=== PATIENT | male | born 1945 | race Caucasian/White ===

== ENCOUNTER 2017-11-03 12:55 | Inpatient (IN) | payer OTHER ==
--- NOTE | 2017-11-03 13:18 | PDOC ---
History of Present Illness - General Chief Complaint: Chest Pain Stated Complaint: CHEST PAIN Time Seen by Provider: 11/03/17 13:16 - History of Present Illness Initial Comments: 11/03/17 13:38 72 year old man with past medical history of bladder cancer, GERD and HLD who presents with pressure-like chest pain that started 3 days ago when waking up from sleep at 2330. The pain did not wake him up from sleep. After the onset of the pain, the patient was unable to fall back asleep and had to sit in a chair for approx 1 hour. Since onset the pain has been constant but waxes and wanes. He denies shortness of breath and nausea but notes that after the chest pain increases he has some diaphoresis. The pain is noted to worsen with leaning forward but is not relieved with anything. The patient took Tylenols without relief of symptoms. He denies recent illness, cold/flu symptoms, fever or abdominal pain. The patient also complains of some R eye sinus pressure. PMHX: as in HPI PSHX: see below Meds: lipitor Allergies: NKDA Tob: quit in 1985 Etoh: quit 2004 Rec drugs: none Past History - Past Medical History Allergies/Adverse Reactions: Allergies Allergy/AdvReac Type Severity Reaction Status Date / Time No Known Drug Allergies Allergy Verified 11/03/17 13:05 Home Medications: Ambulatory Orders Aspirin Coated [Ecotrin -] 81 mg PO DAILY #0 tablet.ec 09/29/12 Atorvastatin Ca [Lipitor] 20 mg PO HS #0 tablet 09/29/12 Docosahexanoic Acid/Epa [Fish Oil Softgel] 1 each PO DAILY 06/13/13 Multivitamin with Minerals [One Daily] 1 each PO DAILY 06/13/13 Ascorbic Acid [Vitamin C] 1,000 mg PO Q48H 11/03/17 Anemia: No Asthma: No Cancer: Yes (BLADDER CA 2004 & PROSTATE ) Cardiac Disorders: No CVA: No COPD: No CHF: No Dementia: No Diabetes: No GI Disorders: Yes (GERD, GASTRITIS, COLON POLYPS, DIVERTICULOSIS) Disorders: No HTN: No Hypercholesterolemia: Yes Liver Disease: Yes (FATTY LIVER, PREVIOUS ETOH HEPATITIS) Seizures: No Thyroid Disease: No - Surgical History Abdominal Surgery: (LIH, RIH) Appendectomy: No Cardiac Surgery: No Cholecystectomy: No Lung Surgery: No Neurologic Surgery: No Orthopedic Surgery: Yes (LT SHOULDER SX) - Suicide/Smoking/Psychosocial Hx Smoking Status: Yes Smoking History: Never smoked Have you smoked in the past 12 months: No Number of Cigarettes Smoked Daily: 0 If you are a former smoker, when did you quit?: 27YRS AGO Hx Alcohol Use: Yes (LAST USED 2004) Drug/Substance Use Hx: No Substance Use Type: None Hx Substance Use Treatment: No Review of Systems - Review of Systems Able to Perform ROS?: Yes Is the patient limited Taiwanese proficient: No Constitutional: Yes: Diaphoresis. No: Chills, Fever HEENTM: No: Nose Congestion, Throat Pain Respiratory: No: Cough, Orthopnea, Shortness of Breath, Productive cough Cardiac (ROS): Yes: See HPI, Chest Tightness. No: Chest Pain, Lightheadedness, Palpitations ABD/GI: No: Constipated, Diarrhea, Nausea, Vomiting : No: Burning, Dysuria, Hematuria Musculoskeletal: No: Back Pain Integumentary: Yes: Sweating Neurological: No: Headache, Numbness, Paresthesia, Tingling, Tremors *Physical Exam - Vital Signs Last Vital Signs Temp Pulse Resp BP Pulse Ox 98.6 F 72 18 104/69 97 11/03/17 13:03 11/03/17 13:03 11/03/17 13:03 11/03/17 13:03 11/03/17 13:03 - Physical Exam Comments: 11/03/17 13:47 GENERAL: Awake, alert, and fully oriented, in no acute distress HEAD: No signs of trauma, normocephalic, atraumatic EYES: EOMI, sclera anicteric, conjunctiva clear ENT:oropharynx clear without exudates. Moist mucosa NECK: Normal ROM, supple, no lymphadenopathy, JVD, or masses LUNGS: No distress, speaks full sentences, clear to auscultation bilaterally HEART: tachycardia, irregular rhythm, loud S1 and S2, no murmurs, rubs or gallops, peripheral pulses normal and equal bilaterally. ABDOMEN: Soft, nontender, normoactive bowel sounds. No guarding, no rebound. No masses EXTREMITIES : Normal inspection, Normal range of motion, no edema. No clubbing or cyanosis. NEUROLOGICAL: Normal speech, normal gait, no focal sensorimotor deficits SKIN: Warm, Dry, normal turgor, no rashes or lesions noted ED Treatment Course - LABORATORY CBC & Chemistry Diagram: 11/03/17 13:50 11/03/17 19:20 Medical Decision Making - Medical Decision Making 11/03/17 13:48 72 year old man with past medical history of bladder cancer, GERD and HLD who presents with pressure-like chest pain that started 3 days ago when waking up from sleep at 2330. The pain did not wake him up from sleep. After the onset of the pain, the patient was unable to fall back asleep and had to sit in a chair for approx 1 hour. Since onset the pain has been constant but waxes and wanes. He denies shortness of breath and nausea but notes that after the chest pain increases he has some diaphoresis. The pain is noted to worsen with leaning forward but is not relieved with anything. DDX including but not limited to: arrythmia vs ACS vs W/U: - cbc, cmp, cardiac profile, PT/INR, PTT TX: - 1L NS - diltiazem 10mg IV Scores: CHADS-vasc: 1 ED Course: EKG shows new Afib with RVR. Prior EKGs sinus Patient, assessed. stable. no acute distress. 11/03/17 14:00 Diltiazem 10 admin IV and 30 PO with investigative writer and attending at bedside. Patient showed good response HR down to 88 11/03/17 14:07 Malendowiz consulted. recommends lovenox. will come see pt 11/03/17 16:03 Pt admitted to medicine. *DC/Admit/Observation/Transfer Diagnosis at time of Disposition: New onset a-fib, Atrial fibrillation with RVR - Discharge Dispostion Condition at time of disposition: Good Decision to Admit order: Yes - Referrals - Patient Instructions - Post Discharge Activity
[2017-11-03] MEDS ORDERED: SODIUM CHLORIDE 1,000 ML IV STA (13:32)
--- NOTE | 2017-11-03 13:32 | PDOC ---
Attending Attestation - Resident Resident Name: Edith Rebollar - ED Attending Attestation I have performed the following: I have examined & evaluated the patient, The case was reviewed & discussed with the resident, I agree w/resident's findings & plan, Exceptions are as noted - HPI HPI: 11/03/17 15:44 Mr Jo is a 72-year-old male with a history of hypertension who presents emergency department with a complaint of dyspnea on exertion and palpitations. Patient states his symptoms began approximately Wednesday early in the morning. No fevers no chills. No lower chin edema. No recent travel. No prior episodes like this. He noticed today while walking his grandson home he had dyspnea on exertion. Upon arrival to triage he is noted to have a heart rate in the 150s. Prior cardiac history - Physicial Exam PE: 11/03/17 15:45 GENERAL: The patient is in no acute distress. NECK: No JVD LUNGS: Breath sounds equal, clear to auscultation bilaterally. No wheezes, and no crackles. HEART: Irregularly, irregular, no murmurs ABDOMEN: Soft, nontender, normoactive bowel sounds. No guarding, no rebound. No masses palpable. EXTREMITIES: Normal range of motion NEUROLOGICAL: Cranial nerves II through XII grossly intact. Normal speech. No focal neurological deficits. - Medical Decision Making 11/03/17 15:46 Afib with RVR, rate of 158 bpm, axis nml, intervals nml, no st elevations, prominent t waves 11/03/17 15:47 Laboratory Tests 11/03/17 13:50 WBC 9.3 Hgb 14.0 Hct 41.8 Plt Count 322 Pt given Cardizem IV Pt also given Cardizem po IV fluids initiated Repeat EKG Afib rate of 90 bpm, axis nml, no st elevations or depression,, twaves up right Call placed to Dr Long Will admit to tele for new onset Afib with RVR Discharge Disposition - Diagnosis New onset a-fib, Atrial fibrillation with RVR - Discharge Dispostion Condition at time of disposition: Good Last Admission D/C Date: 09/29/12 Decision to Admit order: Yes - Referrals Referrals: Alexx Mccarthy MD [Primary Care Provider] - - Patient Instructions - Post Discharge Activity
[2017-11-03] MEDS ORDERED: dilTIAZem HCL 50 MG/10 ML - 10 ML VIAL IVPUSH ONE (13:34)
[2017-11-03] MEDS ORDERED: dilTIAZem HCL 125 MG/25 ML - 25 ML VIAL ONE (13:43)
[2017-11-03] MEDS ORDERED: dilTIAZem HCL 30 MG TABLET (FP) PO ONE (13:49)
[2017-11-03] MEDS ORDERED: dilTIAZem HCL 30 MG TABLET (FP) ONE (13:56)
[2017-11-03] MEDS ORDERED: ENOXAPARIN NA (PORCINE) 100 MG/1 ML DISP.SYRIN SQ ONE ×2 (14:10→14:36)
--- NOTE | 2017-11-03 14:13 | CON.CARD ---
Consult Consult Specialty:: Cardiology Reason for Consultation:: af with RVR - History of Present Illness History of Present Illness: 72 year old man with past medical history of bladder cancer, GERD and HLD who presents with pressure-like chest pain that started 3 days ago when waking up from sleep at 2330. The pain did not wake him up from sleep. After the onset of the pain, the patient was unable to fall back asleep and had to sit in a chair for approx 1 hour. Since onset the pain has been constant but waxes and wanes. He denies shortness of breath and nausea but notes that after the chest pain increases he has some diaphoresis. The pain is noted to worsen with leaning forward but is not relieved with anything. The patient took Tylenols without relief of symptoms. He denies recent illness, cold/flu symptoms, fever or abdominal pain. The patient also complains of some R eye sinus pressure. - History Source History Provided By: Patient, Medical Record - Past Medical History Cardio/Vascular: Yes: Hyperlipdemia - Alcohol/Substance Use Hx Alcohol Use: Yes (LAST USED 2004) - Smoking History Smoking history: Never smoked Have you smoked in the past 12 months: No Aproximately how many cigarettes per day: 0 If you are a former smoker, when did you quit?: 27YRS AGO Home Medications - Allergies Allergies/Adverse Reactions: Allergies Allergy/AdvReac Type Severity Reaction Status Date / Time No Known Drug Allergies Allergy Verified 11/03/17 13:05 - Home Medications Home Medications: Ambulatory Orders Aspirin Coated [Ecotrin -] 81 mg PO DAILY #0 tablet.ec 09/29/12 Atorvastatin Ca [Lipitor] 20 mg PO HS #0 tablet 09/29/12 Docosahexanoic Acid/Epa [Fish Oil Softgel] 1 each PO DAILY 06/13/13 Multivitamin with Minerals [One Daily] 1 each PO DAILY 06/13/13 Ascorbic Acid [Vitamin C] 1,000 mg PO Q48H 11/03/17 Review of Systems - Review of Systems Constitutional: reports: No Symptoms Eyes: reports: No Symptoms HENT: reports: No Symptoms Neck: reports: No Symptoms Cardiovascular: reports: Chest Pain, Palpitations Gastrointestinal: reports: No Symptoms Genitourinary: reports: No Symptoms Breasts: reports: No Symptoms Reported Musculoskeletal: reports: No Symptoms Integumentary: reports: No Symptoms Neurological: reports: No Symptoms Endocrine: reports: No Symptoms Hematology/Lymphatic: reports: No Symptoms Psychiatric: reports: No Symptoms Vital Signs: Vital Signs Temperature 98.6 F 11/03/17 13:03 Pulse Rate 105 H 11/03/17 14:01 Respiratory Rate 17 11/03/17 14:01 Blood Pressure 115/81 11/03/17 14:01 O2 Sat by Pulse Oximetry (%) 98 11/03/17 14:01 Constitutional: Yes: Well Nourished, No Distress, Calm Eyes: Yes: WNL, Conjunctiva Clear, EOM Intact HENT: Yes: WNL, Atraumatic, Normocephalic Neck: Yes: WNL, Supple, Trachea Midline Respiratory: Yes: WNL, Regular, CTA Bilaterally Gastrointestinal: Yes: WNL, Normal Bowel Sounds Renal/: Yes: WNL Cardiovascular: Yes: Pulse Irregular Heart Sounds: Yes: S1, S2 Musculoskeletal: Yes: WNL Extremities: Yes: WNL Integumentary: Yes: WNL Neurological: Yes: WNL, Alert, Oriented ...Motor Strength: WNL Psychiatric: Yes: WNL, Alert, Oriented Imaging - Results Chest X-ray: Image Reviewed (cm no i/e) EKG: Pending (telemetry AF) Assessment/Plan AF with RVR chest pain HLP Blader CA Plan; rate control with Cardizem and BB AC lovonox 1 mg/kg after labs are available will decide credit office manager AC r/o mi telemtry ECHO/ekg will f/u
[2017-11-03 14:29] LABS: BASO % 0.2 % (0-2.0); EOS % 19.3 % (0-4.5); HEMATOCRIT 41.8 % (35.4-49); LYMPH % 26.9 % (8-40); MCH 31.4 pg (25.7-33.7); MCHC 33.5 g/dl (32.0-35.9); MEAN CELL VOLUME 93.8 fl (80-96); MEAN PLT VOLUME 8.2 fl (7.5-11.1); MONO % 11.1 % (3.8-10.2); NEUT % 42.5 % (42.8-82.8); PLATELET COUNT 322 K/MM3 (134-434); RBC 4.46 M/mm3 (4.00-5.60); RDW 13.8 % (11.9-15.9); WHITE BLOOD COUNT 9.3 K/mm3 (4.0-10.0)
[2017-11-03] MEDS: METOPROLOL TARTRATE 50 MG TABLET (FP) PO SCH ×2 (14:41→22:49)
[2017-11-03 14:43] LABS: INR 1.04 (0.83-1.09); PROTHROMBIN TIME (PATIENT) 11.7 SEC (9.7-13.0)
--- NOTE | 2017-11-03 15:10 | HP ---
Admitting History and Physical - Primary Care Physician PCP: Alexx Mccarthy - Admission Chief Complaint: chest pain History of Present Illness: is a 72 year old male who comes in with 3 day history of left sided chest pressure. Pt reports onset of chest pressure/heaviness/tightness on Wednesday without any improvement. He describes the pressure to radiate to neck, head. He notices the chest pressure to be slightly worse with activity/bending down. He also complains of shortness of breath on exertion which is new for him. Otherwise, he denies any chest pain, palpitations, n/v/d, lightheadedness/ dizziness, unilateral weakness, slurred speech, altered vision, fever/chills, rash, or changes in medications. Pt currently on prednisone taper prescribed by scorer single for LE edema per daughter at bedside. Pt found to be in new onset afib in ED. Pt received IV cardizem w/ improvement in rate control. Pt reports resolution of chest pressure after receiving med. Pt currently asymptomatic. History Source: Patient, Medical Record Limitations to Obtaining History: No Limitations - Past Medical History Cardiovascular: Yes: Hyperlipdemia Renal/: Yes: Cancer (bladder/prostate) - Past Surgical History Past Surgical History: Yes: Prostatectomy - Smoking History Smoking history: Former smoker Have you smoked in the past 12 months: No Aproximately how many cigarettes per day: 0 If you are a former smoker, when did you quit?: 27YRS AGO - Alcohol/Substance Use Hx Alcohol Use: Yes (LAST USED 2004) History of Substance Use: reports: None - Social History ADL: Independent Home Medications - Allergies Allergies/Adverse Reactions: Allergies Allergy/AdvReac Type Severity Reaction Status Date / Time No Known Drug Allergies Allergy Verified 11/03/17 13:05 - Home Medications Home Medications: Ambulatory Orders Aspirin Coated [Ecotrin -] 81 mg PO DAILY #0 tablet.ec 09/29/12 Atorvastatin Ca [Lipitor] 20 mg PO HS #0 tablet 09/29/12 Docosahexanoic Acid/Epa [Fish Oil Softgel] 1 each PO DAILY 06/13/13 Multivitamin with Minerals [One Daily] 1 each PO DAILY 06/13/13 Ascorbic Acid [Vitamin C] 1,000 mg PO Q48H 11/03/17 Prednisone 5 mg PO 11/03/17 Family Disease History - Family Disease History Family Disease History: Diabetes: Mother, Heart Disease: Father, Mother, Brother , Sister Review of Systems Findings/Remarks: PER HPI Physical Examination Vital Signs: Vital Signs Temperature 98.6 F 11/03/17 13:03 Pulse Rate 116 H 11/03/17 14:42 Respiratory Rate 11/03/17 14:42 Blood Pressure 140/89 11/03/17 14:42 O2 Sat by Pulse Oximetry (%) 100 11/03/17 14:42 Constitutional: Yes: Well Nourished Cardiovascular: Yes: Pulse Irregular. No: Murmur, Rub Respiratory: Yes: WNL, Regular, CTA Bilaterally. No: Accessory Muscle Use, Rales, Rhonchi, SOB, Stridor, Tachypnea Gastrointestinal: Yes: WNL, Normal Bowel Sounds, Soft. No: Distention, Tenderness Renal/: Yes: WNL Musculoskeletal: Yes: WNL Extremities: Yes: WNL Edema: No Integumentary: Yes: WNL Neurological: Yes: WNL, Alert, Oriented. No: Confusion, Facial Droop, Lethargy , Tingling, Unsteady Gait Psychiatric: Yes: WNL, Alert, Oriented Labs: CBC, BMP 11/03/17 13:50 Imaging - Results Chest X-ray: Report Reviewed Ultrasound: Pending EKG: Report Reviewed, Image Reviewed Problem List - Problems (1) New onset a-fib Assessment/Plan: new onset afib, rate controlled s/p cardizem iv symptoms resolved w/ rate control tsh wnl echo pending evaluated by cardiology started on metoprolol chadvasc score 1, low/mod risk lovenox x 1 initiate AC tomorrow per cardiology tele monitoring Code(s): I48.91 - UNSPECIFIED ATRIAL FIBRILLATION (2) Chest pain Assessment/Plan: suspect 2/2 acute afib troponin neg resolved after rate improved as above Code(s): R07.9 - CHEST PAIN, UNSPECIFIED Qualifiers: Chest pain type: other chest pain Qualified Code(s): R07.89 - Other chest pain; R07.8 - Other chest pain (3) SOB (shortness of breath) on exertion Assessment/Plan: improved as above Code(s): R06.02 - SHORTNESS OF BREATH (4) HLD (hyperlipidemia) Assessment/Plan: stable continue statin Code(s): E78.5 - HYPERLIPIDEMIA, UNSPECIFIED
[2017-11-03 19:56] LABS: ALBUMIN 3.4 g/dl (3.4-5.0); ALK PHOS 58 U/L (45-117); ANION GAP 8 MMOL/L (8-16); BILIRUBIN,TOTAL 0.4 mg/dL (0.2-1); BLOOD UREA NITROGEN 13 mg/dL (7-18); CALCIUM 8.7 mg/dL (8.5-10.1); CHLORIDE 106 mmol/L (98-107); CO2 29 mmol/L (21-32); CREATININE 0.9 mg/dL (0.55-1.3); GLUCOSE,RANDOM 144 mg/dL (74-106); POTASSIUM 3.9 mmol/L (3.5-5.1); SGOT/AST 18 U/L (15-37); SGPT/ALT 29 U/L (13-61); SODIUM 143 mmol/L (136-145); TOT PROT 6.3 g/dl (6.4-8.2)
[2017-11-03 22:39] VITALS: BMI 29.1
[2017-11-03] MEDS: ATORVASTATIN CA 20 MG TABLET (FP) PO SCH (22:49)
[2017-11-04] MEDS: METOPROLOL TARTRATE 50 MG TABLET (FP) PO SCH ×3 (05:17→21:14)
[2017-11-04 07:25] LABS: BASO % 0.5 % (0-2.0); EOS % 21.8 % (0-4.5); HEMATOCRIT 38.5 % (35.4-49); HEMOGLOBIN 12.9 GM/dL (11.7-16.9); LYMPH % 25.3 % (8-40); MCH 31.4 pg (25.7-33.7); MCHC 33.5 g/dl (32.0-35.9); MEAN CELL VOLUME 93.8 fl (80-96); MEAN PLT VOLUME 7.8 fl (7.5-11.1); MONO % 10.7 % (3.8-10.2); NEUT % 41.7 % (42.8-82.8); PLATELET COUNT 253 K/MM3 (134-434); RBC 4.11 M/mm3 (4.00-5.60); RDW 13.5 % (11.9-15.9); WHITE BLOOD COUNT 7.3 K/mm3 (4.0-10.0)
[2017-11-04 07:43] LABS: CHLORIDE 103 mmol/L (98-107); POTASSIUM 4.4 mmol/L (3.5-5.1); SODIUM 139 mmol/L (136-145)
[2017-11-04 07:53] LABS: ANION GAP 5 MMOL/L (8-16); BLOOD UREA NITROGEN 13 mg/dL (7-18); CALCIUM 8.4 mg/dL (8.5-10.1); CO2 31 mmol/L (21-32); CREATININE 0.7 mg/dL (0.55-1.3); GLUCOSE,RANDOM 91 mg/dL (74-106); MAGNESIUM 2.1 mg/dL (1.8-2.4); PHOSPHOROUS 3.9 mg/dL (2.5-4.9)
--- NOTE | 2017-11-04 09:57 | EKG ---
Test Reason : Blood Pressure : / mmHG Vent. Rate : 072 BPM Atrial Rate : 072 BPM P-R Int : 158 ms QRS Dur : 098 ms QT Int : 390 ms P-R-T Axes : 051 044 059 degrees QTc Int : 427 ms NORMAL SINUS RHYTHM NORMAL ECG WHEN COMPARED WITH ECG OF 03-NOV-2017 15:34, SINUS RHYTHM HAS REPLACED ATRIAL FIBRILLATION BORDERLINE CRITERIA FOR INFERIOR INFARCT ARE NO LONGER PRESENT Confirmed by PORTIA SAUNDERS, BRADFORD ([id number]) on 11/04/2017 9:57:14 AM Referred By: Confirmed By:BRADFORD PEARCE MD
--- NOTE | 2017-11-04 09:58 | EKG ---
Test Reason : Blood Pressure : / mmHG Vent. Rate : 090 BPM Atrial Rate : 088 BPM P-R Int : 000 ms QRS Dur : 092 ms QT Int : 354 ms P-R-T Axes : 000 005 021 degrees QTc Int : 433 ms POOR DATA QUALITY, INTERPRETATION MAY BE ADVERSELY AFFECTED ATRIAL FIBRILLATION POSSIBLE INFERIOR INFARCT , AGE UNDETERMINED ABNORMAL ECG WHEN COMPARED WITH ECG OF 26-SEP-2012 19:03, ATRIAL FIBRILLATION HAS REPLACED SINUS RHYTHM Confirmed by PORTIA SAUNDERS, BRADFORD (2013) on 11/04/2017 9:58:11 AM Referred By: Confirmed By:BRADFORD PEARCE MD
--- NOTE | 2017-11-04 09:59 | EKG ---
Test Reason : Blood Pressure : / mmHG Vent. Rate : 158 BPM Atrial Rate : 227 BPM P-R Int : 000 ms QRS Dur : 088 ms QT Int : 280 ms P-R-T Axes : 000 040 -59 degrees QTc Int : 454 ms ATRIAL FIBRILLATION WITH RAPID VENTRICULAR RESPONSE NONSPECIFIC T WAVE ABNORMALITY ABNORMAL ECG WHEN COMPARED WITH ECG OF 26-SEP-2012 19:03, ATRIAL FIBRILLATION HAS REPLACED SINUS RHYTHM VENT. RATE HAS INCREASED BY 85 BPM NONSPECIFIC T WAVE ABNORMALITY NOW EVIDENT IN INFERIOR LEADS NONSPECIFIC T WAVE ABNORMALITY NOW EVIDENT IN LATERAL LEADS Confirmed by BRADFORD PEARCE MD ([id number]) on 11/04/2017 9:58:37 AM Referred By: Confirmed By:BRADFORD PEARCE MD
[2017-11-04] MEDS ORDERED: ASPIRIN COATED 81 MG TABLET.EC PO SCH (10:00)
[2017-11-04] MEDS: predniSONE 5 MG TABLET (UD) PO SCH (10:14)
--- NOTE | 2017-11-04 10:42 | PN ---
Progress Note, Physician Chief Complaint: Pt A&Ox3; ambulating hallway; still gets diffuse chest tightness on exertion that is partly reproducible with palpation. History of Present Illness: 72 year old man (tabitha Ayala) with past medical history of bladder cancer, GERD and HLD who presents with pressure-like chest pain that started 3 days ago when waking up from sleep at 2330. The pain did not wake him up from sleep. After the onset of the pain, the patient was unable to fall back asleep and had to sit in a chair for approx 1 hour. Since onset the pain has been constant but waxes and wanes. He denies shortness of breath and nausea but notes that after the chest pain increases he has some diaphoresis. The pain is noted to worsen with leaning forward but is not relieved with anything. The patient took Tylenols without relief of symptoms. He denies recent illness, cold/flu symptoms , fever or abdominal pain. The patient also complains of some R eye sinus pressure. - Current Medication List Current Medications: Active Medications Aspirin (Ecotrin -) 81 mg PO DAILY [facility] Last Admin: 11/04/17 10:14 Dose: 81 mg Atorvastatin Calcium (Lipitor -) 20 mg PO HS [facility] Last Admin: 11/03/17 22:49 Dose: 20 mg Metoprolol Tartrate (Lopressor -) 50 mg PO TID [facility] Last Admin: 11/04/17 05:17 Dose: 50 mg Prednisone (Deltasone -) 5 mg PO DAILY [facility] Last Admin: 11/04/17 10:14 Dose: 5 mg - Objective Vital Signs: Vital Signs Temperature 97.4 F L 11/04/17 10:05 Pulse Rate 68 11/04/17 10:05 Respiratory Rate 18 11/04/17 10:05 Blood Pressure 143/73 11/04/17 10:05 O2 Sat by Pulse Oximetry (%) 95 11/04/17 10:04 Constitutional: Yes: Anxious Eyes: Yes: WNL HENT: Yes: WNL Neck: Yes: WNL Cardiovascular: Yes: Regular Rate and Rhythm Respiratory: Yes: WNL Gastrointestinal: Yes: Soft ...Rectal Exam: Yes: Deferred Genitourinary: No: Anuria Breast(s): Yes: WNL Musculoskeletal: Yes: WNL Extremities: Yes: WNL Edema: No Peripheral Pulses WNL: Yes Integumentary: Yes: WNL Neurological: Yes: WNL Psychiatric: Yes: WNL Labs: CBC, BMP 11/04/17 05:30 11/04/17 05:30 INR, PTT INR 1.04 (0.83-1.09) 11/03/17 13:50 Abnormal Lab Results 11/03/17 11/03/17 11/04/17 13:50 19:20 05:30 Neutrophils % 42.5 L D 41.7 L Monocytes % 11.1 H 10.7 H Eosinophils % 19.3 H D 21.8 H* Eosinophils % (Manual) 23.2 H Anion Gap Random Glucose 144 H Calcium Total Protein 6.3 L 11/04/17 05:30 Neutrophils % Monocytes % Eosinophils % Eosinophils % (Manual) Anion Gap 5 L Random Glucose Calcium 8.4 L Total Protein - ....Imaging EKG: Image Reviewed (NSR) Other: Image Reviewed (telemetry: now in NSR) Problem List - Problems (1) Wheeler cardiac risk >20% in next 10 years Assessment/Plan: HTN; hypeerlipdemia; 72 yr old man. Now iwht exertional chest tightness and new-onset AF. Pt will undergo stress treadmil MIBI in am. Code(s): Z91.89 - OTH PERSONAL RISK FACTORS, NOT ELSEWHERE CLASSIFIED (2) HTN (hypertension) Code(s): I10 - ESSENTIAL (PRIMARY) HYPERTENSION (3) Atrial fibrillation with RVR Assessment/Plan: Now in sinus rhythn on metoprolol. ECHO: normal LVEF; normal chamber sizes; moderately severe AR; moderate MR. Start anticoagulant (NOAC). For stres MIBI in am. Code(s): I48.91 - UNSPECIFIED ATRIAL FIBRILLATION (4) Chest pain Assessment/Plan: diffuse moderate chest tightness with exertion for the past week. Will assess for symptoms and to hlep r/o CAD with stress treadmill MIBI while on metoprolol (the latter is needed for HR control of PAF; pt also has HTN). If stess MIBI is unremarkable, will consider stopping ASA. F/u ipid profile. Code(s): R07.9 - CHEST PAIN, UNSPECIFIED Qualifiers: Chest pain type: other chest pain Qualified Code(s): R07.89 - Other chest pain; R07.8 - Other chest pain (5) HLD (hyperlipidemia) Assessment/Plan: f/u lipid profile (on atorvastatin). Code(s): E78.5 - HYPERLIPIDEMIA, UNSPECIFIED
[2017-11-04 11:11] LABS: ANISOCYTOSIS 1+; MACROCYTOSIS 1+; PLATELET ESTIMATE NORMAL
[2017-11-04] MEDS: APIXABAN 5 MG TABLET PO SCH ×2 (11:17→21:14)
--- NOTE | 2017-11-04 11:59 | PN ---
Progress Note, Physician Chief Complaint: Pt sitting in bed in no acute distress. complains of chest pressure/tightness. pt reports its exacerbated w/ position and also w/ palpation. denies any chest pain, sob, n/v/d - Current Medication List Current Medications: Active Medications Apixaban (Eliquis -) 5 mg PO BID [facility] Last Admin: 11/04/17 11:17 Dose: 5 mg Aspirin (Ecotrin -) 81 mg PO DAILY [facility] Last Admin: 11/04/17 10:14 Dose: 81 mg Atorvastatin Calcium (Lipitor -) 20 mg PO HS [facility] Last Admin: 11/03/17 22:49 Dose: 20 mg Metoprolol Tartrate (Lopressor -) 50 mg PO TID [facility] Last Admin: 11/04/17 05:17 Dose: 50 mg Prednisone (Deltasone -) 5 mg PO DAILY [facility] Last Admin: 11/04/17 10:14 Dose: 5 mg - Objective Vital Signs: Vital Signs Temperature 97.4 F L 11/04/17 10:05 Pulse Rate 68 11/04/17 10:05 Respiratory Rate 18 11/04/17 10:05 Blood Pressure 143/73 11/04/17 10:05 O2 Sat by Pulse Oximetry (%) 95 11/04/17 10:04 Constitutional: Yes: Well Nourished, No Distress, Calm Cardiovascular: Yes: WNL, Regular Rate and Rhythm. No: Murmur, Rub Respiratory: Yes: WNL, Regular, CTA Bilaterally Gastrointestinal: Yes: WNL, Normal Bowel Sounds, Soft. No: Distention, Tenderness, Vomiting Genitourinary: Yes: WNL Musculoskeletal: Yes: WNL Extremities: Yes: WNL Edema: No Neurological: Yes: WNL, Alert, Oriented Psychiatric: Yes: WNL, Alert, Oriented Labs: CBC, BMP 11/04/17 05:30 11/04/17 05:30 INR, PTT INR 1.04 (0.83-1.09) 11/03/17 13:50 Problem List - Problems (1) New onset a-fib Code(s): I48.91 - UNSPECIFIED ATRIAL FIBRILLATION (2) Chest pain Code(s): R07.9 - CHEST PAIN, UNSPECIFIED Qualifiers: Chest pain type: other chest pain Qualified Code(s): R07.89 - Other chest pain; R07.8 - Other chest pain (3) SOB (shortness of breath) on exertion Code(s): R06.02 - SHORTNESS OF BREATH (4) HLD (hyperlipidemia) Code(s): E78.5 - HYPERLIPIDEMIA, UNSPECIFIED Assessment/Plan 1) New onset a-fib Assessment/Plan: in SR now continue metoprolol, eliquis started echo without acute findings tele monitoring Code(s): I48.91 - UNSPECIFIED ATRIAL FIBRILLATION (2) Chest pain Assessment/Plan: chest tightness/pressure x 1 week worse w/ movement/palpation- could be musculoskeleteal however need to r/o cardiac etiology troponin neg, trend plan for stress MIBI tomorrow am NPO at [facility] cardiology following Code(s): R07.9 - CHEST PAIN, UNSPECIFIED Qualifiers: Chest pain type: other chest pain Qualified Code(s): R07.89 - Other chest pain; R07.8 - Other chest pain (3) SOB (shortness of breath) on exertion Assessment/Plan: improved as above Code(s): R06.02 - SHORTNESS OF BREATH (4) HLD (hyperlipidemia) Assessment/Plan: stable continue statin Code(s): E78.5 - HYPERLIPIDEMIA, UNSPECIFIED Dispo: Home when cardiology cleared
[2017-11-04 13:10] LABS: CHOLESTEROL 135 mg/dL (50-200); HDL CHOLESTEROL 39 mg/dL (40-60); TRIGLYCERIDES 140 mg/dL (0-150)
[2017-11-04] MEDS: ATORVASTATIN CA 20 MG TABLET (FP) PO SCH (21:14)
[2017-11-05] MEDS: METOPROLOL TARTRATE 50 MG TABLET (FP) PO SCH ×2 (05:53→13:06)
[2017-11-05 06:49] LABS: BASO % 0.3 % (0-2.0); EOS % 17.8 % (0-4.5); HEMATOCRIT 39.6 % (35.4-49); HEMOGLOBIN 13.3 GM/dL (11.7-16.9); LYMPH % 27.3 % (8-40); MCH 31.2 pg (25.7-33.7); MCHC 33.6 g/dl (32.0-35.9); MEAN CELL VOLUME 92.8 fl (80-96); MEAN PLT VOLUME 7.7 fl (7.5-11.1); MONO % 10.3 % (3.8-10.2); NEUT % 44.3 % (42.8-82.8); PLATELET COUNT 251 K/MM3 (134-434); RBC 4.26 M/mm3 (4.00-5.60); RDW 13.2 % (11.9-15.9); WHITE BLOOD COUNT 6.8 K/mm3 (4.0-10.0)
[2017-11-05 07:48] LABS: ALBUMIN 3.3 g/dl (3.4-5.0); ALK PHOS 60 U/L (45-117); ANION GAP 4 MMOL/L (8-16); BILIRUBIN,TOTAL 0.4 mg/dL (0.2-1); BLOOD UREA NITROGEN 11 mg/dL (7-18); CALCIUM 8.3 mg/dL (8.5-10.1); CHLORIDE 104 mmol/L (98-107); CO2 32 mmol/L (21-32); CREATININE 0.7 mg/dL (0.55-1.3); GLUCOSE,RANDOM 92 mg/dL (74-106); POTASSIUM 4.3 mmol/L (3.5-5.1); SGOT/AST 18 U/L (15-37); SGPT/ALT 28 U/L (13-61); SODIUM 139 mmol/L (136-145); TOT PROT 6.3 g/dl (6.4-8.2)
[2017-11-05] MEDS: predniSONE 5 MG TABLET (UD) PO SCH ×2 (09:17→13:06)
[2017-11-05] MEDS: APIXABAN 5 MG TABLET PO SCH ×2 (09:17→13:06)
--- NOTE | 2017-11-05 09:29 | PN ---
Progress Note, Physician Chief Complaint: Pt A&Ox3;asymptomatic.Awaits stress MIBI. - Current Medication List Current Medications: Active Medications Apixaban (Eliquis -) 5 mg PO BID [facility] Last Admin: 11/05/17 09:17 Dose: Not Given Atorvastatin Calcium (Lipitor -) 20 mg PO HS [facility] Last Admin: 11/04/17 21:14 Dose: 20 mg Metoprolol Tartrate (Lopressor -) 50 mg PO TID [facility] Last Admin: 11/05/17 05:53 Dose: Not Given Prednisone (Deltasone -) 5 mg PO DAILY [facility] Last Admin: 11/05/17 09:17 Dose: Not Given - Objective Vital Signs: Vital Signs Temperature 98.5 F 11/05/17 06:00 Pulse Rate 61 11/05/17 06:00 Respiratory Rate 18 11/05/17 06:00 Blood Pressure 129/66 11/05/17 06:00 O2 Sat by Pulse Oximetry (%) 95 11/04/17 21:00 Labs: CBC, BMP 11/05/17 05:30 11/05/17 05:30 INR, PTT INR 1.04 (0.83-1.09) 11/03/17 13:50 Problem List - Problems (1) [place] cardiac risk >20% in next 10 years Assessment/Plan: HTN; hypeerlipdemia; 72 yr old man. Now iwht exertional chest tightness and new-onset AF. Pt will undergo stress treadmil MIBI today. If no significant ischemia, he may be followed as an outpatient, from cardiac perspective. Code(s): Z91.89 - OTH PERSONAL RISK FACTORS, NOT ELSEWHERE CLASSIFIED (2) HTN (hypertension) Code(s): I10 - ESSENTIAL (PRIMARY) HYPERTENSION (3) Atrial fibrillation with RVR Code(s): I48.91 - UNSPECIFIED ATRIAL FIBRILLATION (4) Chest pain Code(s): R07.9 - CHEST PAIN, UNSPECIFIED Qualifiers: Chest pain type: other chest pain Qualified Code(s): R07.89 - Other chest pain; R07.8 - Other chest pain (5) HLD (hyperlipidemia) Code(s): E78.5 - HYPERLIPIDEMIA, UNSPECIFIED
[2017-11-05] MEDS ORDERED: ACETAMINOPHEN 325 MG TABLET (FP) PO PRN (13:15)
[2017-11-05 16:58] VITALS: BP 121/69; PULSE 62; TEMP 98.1
--- NOTE | 2017-11-05 17:22 | DS ---
Physical Examination Vital Signs: Vital Signs Temperature 98.1 F 11/05/17 14:00 Pulse Rate 62 11/05/17 14:00 Respiratory Rate 18 11/05/17 14:00 Blood Pressure 121/69 11/05/17 14:00 O2 Sat by Pulse Oximetry (%) 95 11/05/17 09:00 Constitutional: Yes: Well Nourished, No Distress, Calm Cardiovascular: Yes: WNL, Regular Rate and Rhythm Respiratory: Yes: WNL, Regular, CTA Bilaterally Gastrointestinal: Yes: WNL, Normal Bowel Sounds, Soft. No: Distention, Tenderness Musculoskeletal: Yes: WNL Extremities: Yes: WNL Neurological: Yes: WNL, Alert, Oriented Psychiatric: Yes: WNL, Alert, Oriented Labs: CBC, BMP 11/05/17 05:30 11/05/17 05:30 Discharge Summary Reason For Visit: ATRIAL FIBRILLATION WITH RAPID VENTRICULAR RESPONS Current Active Problems Atrial fibrillation with RVR (Acute) Chest pain (Acute) [place] cardiac risk >20% in next 10 years (Acute) HLD (hyperlipidemia) (Acute) HTN (hypertension) (Acute) New onset a-fib (Acute) SOB (shortness of breath) on exertion (Acute) Hospital Course: 72 year old male admitted for new onset afib, symptoms improved with rate control however pt still complained of chest tightness/pressure yesterday, pt underwent stress mibi this am, without any acute findings, case discussed with cardiology, pt cleared for discharge. today, pt reports feeling well, denies any sob, chest tightness improved, reports mild chest pressure when he palpates substernal area, this appears atypical in nature. Pt is stable, rate controlled. Pt to continue metoprolol and eliquis. advise outpt monitoring. pt medically stable for discharge home. Condition: Good - Instructions Diet, Activity, Other Instructions: steroid taper as directed by balance wheel screw hole tapper- take with FOOD meds as directed follow up closely outpt come to ED if chest pain, sob, signs of bleeding Referrals: Alexx Mccarthy MD [Primary Care Provider] - 1 Week Rajeev Heck MD [Staff Physician] - 1 Week Disposition: HOME - Home Medications Comprehensive Discharge Medication List: Ambulatory Orders Atorvastatin Ca [Lipitor] 20 mg PO HS #0 tablet 09/29/12 Docosahexanoic Acid/Epa [Fish Oil Softgel] 1 each PO DAILY 06/13/13 Multivitamin with Minerals [One Daily] 1 each PO DAILY 06/13/13 Ascorbic Acid [Vitamin C] 1,000 mg PO Q48H 11/03/17 Prednisone 5 mg PO 11/03/17 Apixaban [Eliquis -] 5 mg PO BID #60 tablet 11/05/17 Metoprolol Succinate [Toprol XL -] 25 mg PO BID #60 tab.sr.24h 11/05/17
[2017-11-05] MEDS ORDERED: metoPROLOL SUCCINATE 25 MG TAB.SR.24H (FP) PO SCH (22:00)
== END 2017-11-05 18:08 | disposition home or self-care (01) | DRG 310 ==
LOC: JER 12:55 → JERBED 15:50 → J4W 21:46
PROVIDERS: ADMIT Internal Medicine; ATTEND Internal Medicine
DX: I48.91 Unspecified atrial fibrillation (principal); K21.9 Gastro-esophageal reflux disease without esophagitis; E78.5 Hyperlipidemia, unspecified; Z85.51 Personal history of malignant neoplasm of bladder; Z85.46 Personal history of malignant neoplasm of prostate; Z87.891 Personal history of nicotine dependence
CPT/HCPCS: 36415; 71045-TC-FY; 78452-TC; 80048; 80053; 80061; 82550; 83721; 83735; 84100; 84443; 84484; 85025; 85610; 85730; 93005; 93010; 93017; 93306-TC; 99285-25; A9502; J7030

== ENCOUNTER 2018-11-23 08:04 | Inpatient (IN) | payer OTHER ==
[2018-11-23] MEDS ORDERED: METOPROLOL TARTRATE 5 MG/5 ML VIAL ONE ×2 (08:32→09:24)
[2018-11-23] MEDS ORDERED: SODIUM CHLORIDE 500 ML IV STA ×3 (08:34→11:15)
[2018-11-23] MEDS ORDERED: METOPROLOL TARTRATE 5 MG/5 ML VIAL IVPUSH ONE ×3 (08:37→09:22)
--- NOTE | 2018-11-23 09:09 | PDOC ---
Documentation entered by Allen Cuello SCRIBE, acting as scribe for Servando Ngo MD. Servando Ngo MD: This documentation has been prepared by the C[place] sheridan Daniel, SCRIBE, under my direction and personally reviewed by me in its entirety. I confirm that the documentation accurately reflects all work, treatment, procedures, and medical decision making performed by me. History of Present Illness - General Chief Complaint: Palpitations Stated Complaint: RAPID HEART RATE Time Seen by Provider: 11/23/18 08:15 History Source: Patient Exam Limitations: No Limitations - History of Present Illness Initial Comments: 11/23/18 08:52 The patient is a 73 year old male with a past medical history of HLD, bladder cancer, prostate cancer, afib (on eliquis), and GERD here today for evaluation of palpitations. The patient reports that he was scheduled for a routine colonoscopy and stopped taking his eliquis on wednesday (11/20/18). He noted feeling palpitations around 5 AM this morning but went to the endoscopy suite where he was noted to have rapid afib and sent to the ED. Patient denies headache, lightheadedness. Denies fever, chills. Denies chest pain, shortness of breath. Denies nausea, vomiting, diarrhea, abdominal pain. Allergies: NKDA PCP: Alexx Mccarthy GI: Tanvir oMrse Cards: Rajeev Heck Past History - Past Medical History Allergies/Adverse Reactions: Allergies Allergy/AdvReac Type Severity Reaction Status Date / Time No Known Drug Allergies Allergy Verified 11/03/17 13:05 Home Medications: Ambulatory Orders Atorvastatin Ca [Lipitor] 20 mg PO HS #0 tablet 09/29/12 Docosahexanoic Acid/Epa [Fish Oil Softgel] 1 each PO DAILY 06/13/13 Multivitamin with Minerals [One Daily] 1 each PO DAILY 06/13/13 Ascorbic Acid [Vitamin C] 1,000 mg PO DAILY 11/03/17 Apixaban [Eliquis -] 5 mg PO BID #60 tablet 11/05/17 Metoprolol Succinate [Toprol XL -] 25 mg PO BID #60 tab.sr.24h 11/05/17 Anemia: No Asthma: No Cancer: Yes (BLADDER CA 2004 & PROSTATE ) Cardiac Disorders: Yes (ATRIAL FIBRILLATION) CVA: No COPD: No CHF: No Dementia: No Diabetes: No GI Disorders: Yes (GERD, GASTRITIS, COLON POLYPS, DIVERTICULOSIS) Disorders: No HTN: No Hypercholesterolemia: Yes Liver Disease: Yes (FATTY LIVER, PREVIOUS ETOH HEPATITIS) Seizures: No Thyroid Disease: No - Surgical History Abdominal Surgery: (LIH, RIH) Appendectomy: No Cardiac Surgery: No Cholecystectomy: No Lung Surgery: No Neurologic Surgery: No Orthopedic Surgery: Yes (LT SHOULDER SX) - Psycho Social/Smoking Cessation Hx Smoking Status: Yes Smoking History: Former smoker Have you smoked in the past 12 months: No Number of Cigarettes Smoked Daily: 0 If you are a former smoker, when did you quit?: 33 YEARS Information on smoking cessation initiated: No Hx Alcohol Use: No Drug/Substance Use Hx: No Substance Use Type: None Hx Substance Use Treatment: No Review of Systems - Review of Systems Able to Perform ROS?: Yes Comments:: 11/23/18 08:52 CONSTITUTIONAL: No fever, no chills, no fatigue EYES: No visual changes ENT: No ear pain, no sore throat CARDIOVASCULAR: +palpitations. No chest pain RESPIRATORY: No cough, no SOB GI: No abdominal pain, no nausea, no vomiting, no constipation, no diarrhea GENITOURINARY: No dysuria, no frequency, no hematuria MUSKULOSKELETAL: No backpain, no joint pain, no myalgias SKIN: No rash NEURO: No headache *Physical Exam - Vital Signs Last Vital Signs Temp Pulse Resp BP Pulse Ox 98.4 F 140 H 20 100/62 93 L 11/23/18 08:11 11/23/18 08:11 11/23/18 08:11 11/23/18 08:11 11/23/18 08:11 - Physical Exam Comments: 11/23/18 08:54 CONSTITUTIONAL: Well-appearing; well-nourished; in no apparent distress HEAD: Normocephalic; atraumatic EYES: PERRL; EOM intact ENMT: External appears normal; normal oropharynx NECK: Supple; non-tender; no cervical lymphadenopathy CARD: +irregularly irregular. no murmurs, rubs, or gallops RESP: Normal chest excursion with respiration; breath sounds clear and equal bilaterally; no wheezes, rhonchi, or rales ABD: Soft, non-distended; non-tender; no palpable organomegaly, no palpable hernias EXT: Normal ROM in all four extremities; non-tender to palpation; distal pulses intact SKIN: Warm, dry, no rash NEURO: No focal neurological deficiencies. ED Treatment Course - LABORATORY CBC & Chemistry Diagram: 11/23/18 08:55 11/23/18 08:55 - RADIOLOGY Radiology Studies Ordered: Category Date Time Status CHEST X-RAY PORTABLE* [RAD] Stat Radiology 11/23/18 08:35 Ordered - Medications Given in the ED: ED Medications Discontinued Medications Generic Name Dose Route Start Last Admin Trade Name Brian PRN Reason Stop Dose Admin Metoprolol Tartrate 2.5 mg 11/23/18 08:37 11/23/18 08:40 Lopressor Injection - IVPUSH 11/23/18 08:38 2.5 mg ONCE ONE Administration Medical Decision Making - Medical Decision Making 11/23/18 09:07 Patient is a 73-year-old male with history of bladder CA, hypertension and atrial fibrillation on Eliquis who presents from endoscopy suite for rapid A. fib prior to undergoing a routinely scheduled EGD. In the ER, patient is asymptomatic with a heart rate of 1 30-1 40, irregularly irregular with a blood pressure of 95-100 systolic. I suspect patient's symptoms are related to bowel prep and relative hypovolemia. Will hydrate; will administer Lopressor-2.5 mg IV push as needed. Will discuss with cardiology regarding reinitiation of anticoagulation. Likely admission. 11/23/18 09:22 After administration of Lopressor-5 mg IV push in total, patient's heart rate is noted to be 100-1 05, irregular consistent with atrial fibrillation. Patient 's blood pressure, however, has improved to 135/75. We will continue with Lopressor IV at this time. Will administer 5 mg slow IV push. 11/23/18 10:08 Dr. Chavez paged at 9:30 and 10:00 awaiting call back. 11/23/18 10:23 patient reassessed. Patient is resting comfortably, symptom-free. Repeat EKG reveals no evidence of acute ischemia. Heart rate is noted to be 94 at this time. Case discussed with Dr. Chavez of cardiology. Will administer Lovenox subcu at 1 mg/kg. Will admit to telemetry. We will keep on clear liquids for a possible EGD. Discharge - Discharge Information Problems reviewed: Yes Clinical Impression/Diagnosis: Atrial fibrillation with RVR Condition: Fair - Admission Yes - Follow up/Referral Referrals: Alexx Mccarthy MD [Primary Care Provider] - - Patient Discharge Instructions - Post Discharge Activity
[2018-11-23 09:17] LABS: BASO % 0.4 % (0-2.0); EOS % 11.8 % (0-4.5); HEMATOCRIT 41.6 % (35.4-49); HEMOGLOBIN 14.3 GM/dL (11.7-16.9); LYMPH % 16.5 % (8-40); MCH 32.4 pg (25.7-33.7); MCHC 34.4 g/dl (32.0-35.9); MEAN CELL VOLUME 94.1 fl (80-96); MEAN PLT VOLUME 7.5 fl (7.5-11.1); NEUT % 60.3 % (42.8-82.8); PLATELET COUNT 328 K/MM3 (134-434); RBC 4.42 M/mm3 (4.00-5.60); RDW 13.1 % (11.9-15.9); WHITE BLOOD COUNT 8.2 K/mm3 (4.0-10.0)
[2018-11-23 09:34] LABS: INR 1.18 (0.83-1.09); PROTHROMBIN TIME (PATIENT) 13.9 SEC (9.7-13.0)
[2018-11-23 09:40] LABS: ALBUMIN 3.6 g/dl (3.4-5.0); BILIRUBIN,TOTAL 0.4 mg/dL (0.2-1); BLOOD UREA NITROGEN 11.8 mg/dL (7-18); CALCIUM 8.7 mg/dL (8.5-10.1); CREATININE 1.1 mg/dL (0.55-1.3); POTASSIUM 4.8 mmol/L (3.5-5.1); TOT PROT 6.5 g/dl (6.4-8.2)
--- NOTE | 2018-11-23 10:15 | CON.CARD ---
Consult Consult Specialty:: Cardiology Reason for Consultation:: af rvr - History of Present Illness History of Present Illness: The patient is a 73 year old male with a past medical history of HLD, bladder cancer, prostate cancer, afib (on eliquis), and GERD here today for evaluation of palpitations. The patient reports that he was scheduled for a routine colonoscopy and stopped taking his eliquis on wednesday (11/20/18). He noted feeling palpitations around 5 AM this morning but went to the endoscopy suite where he was noted to have rapid afib and sent to the ED. Patient denies headache, lightheadedness. Denies fever, chills. Denies chest pain, shortness of breath. Denies nausea, vomiting, diarrhea, abdominal pain. Allergies: NKDA PCP: Alexx Mccarthy GI: Tanvir Morse Cards: Rajeev Heck - History Source History Provided By: Patient, Medical Record - Past Medical History Cardio/Vascular: Yes: AFIB, HTN, Hyperlipdemia Renal/: Yes: Cancer (bladder/prostate) - Past Surgical History Past Surgical History: Yes: Prostatectomy - Alcohol/Substance Use Hx Alcohol Use: No History of Substance Use: reports: None - Smoking History Smoking history: Former smoker Have you smoked in the past 12 months: No Aproximately how many cigarettes per day: 0 If you are a former smoker, when did you quit?: 33 YEARS - Social History ADL: Independent Home Medications - Allergies Allergies/Adverse Reactions: Allergies Allergy/AdvReac Type Severity Reaction Status Date / Time No Known Drug Allergies Allergy Verified 11/03/17 13:05 - Home Medications Home Medications: Ambulatory Orders Atorvastatin Ca [Lipitor] 20 mg PO HS #0 tablet 09/29/12 Apixaban [Eliquis -] 5 mg PO BID #60 tablet 11/05/17 Metoprolol Succinate [Toprol XL -] 25 mg PO BID #60 tab.sr.24h 11/05/17 Review of Systems - Review of Systems Constitutional: reports: No Symptoms Eyes: reports: No Symptoms HENT: reports: No Symptoms Neck: reports: No Symptoms Cardiovascular: reports: Palpitations Respiratory: reports: No Symptoms Gastrointestinal: reports: No Symptoms Genitourinary: reports: No Symptoms Breasts: reports: No Symptoms Reported Musculoskeletal: reports: No Symptoms Integumentary: reports: No Symptoms Neurological: reports: No Symptoms Endocrine: reports: No Symptoms Hematology/Lymphatic: reports: No Symptoms Psychiatric: reports: No Symptoms Vital Signs: Vital Signs Temperature 98.4 F 11/23/18 08:11 Pulse Rate 112 H 11/23/18 09:17 Respiratory Rate 16 11/23/18 09:17 Blood Pressure 139/77 11/23/18 09:17 O2 Sat by Pulse Oximetry (%) 95 11/23/18 09:17 Constitutional: Yes: Well Nourished, No Distress, Calm Eyes: Yes: WNL, Conjunctiva Clear, EOM Intact HENT: Yes: WNL, Atraumatic, Normocephalic Neck: Yes: WNL, Supple, Trachea Midline Respiratory: Yes: WNL, Regular, CTA Bilaterally Gastrointestinal: Yes: WNL, Normal Bowel Sounds Renal/: Yes: WNL Cardiovascular: Yes: WNL, Regular Rate and Rhythm Musculoskeletal: Yes: WNL Extremities: Yes: WNL Integumentary: Yes: WNL Neurological: Yes: WNL, Alert, Oriented ...Motor Strength: WNL Psychiatric: Yes: WNL, Alert, Oriented - Other Data Labs, Other Data: CBC, BMP 11/23/18 08:55 11/23/18 08:55 INR, PTT INR 1.18 (0.83-1.09) H 11/23/18 08:55 Troponin, BNP 11/23/18 08:55 Troponin I 0.02 Troponin, BNP 11/23/18 08:55 Troponin I 0.02 Imaging - Results Chest X-ray: Pending EKG: Image Reviewed (af rvr) Problem List - Problems (1) Acute hypotension Code(s): I95.9 - HYPOTENSION, UNSPECIFIED (2) Bladder cancer Code(s): C67.9 - MALIGNANT NEOPLASM OF BLADDER, UNSPECIFIED (3) Diverticulosis Code(s): K57.90 - DVRTCLOS OF INTEST, PART UNSP, W/O PERF OR ABSCESS W/O BLEED (4) Fatty liver Code(s): K76.0 - FATTY (CHANGE OF) LIVER, NOT ELSEWHERE CLASSIFIED (5) Hiatal hernia with GERD Code(s): K21.9 - GASTRO-ESOPHAGEAL REFLUX DISEASE WITHOUT ESOPHAGITIS; K44.9 - DIAPHRAGMATIC HERNIA WITHOUT OBSTRUCTION OR GANGRENE (6) History of acute alcoholic hepatitis Code(s): Z87.19 - PERSONAL HISTORY OF OTHER DISEASES OF THE DIGESTIVE SYSTEM (7) History of adenomatous polyp of colon Code(s): Z86.010 - PERSONAL HISTORY OF COLONIC POLYPS (8) Prostate cancer Code(s): C61 - MALIGNANT NEOPLASM OF PROSTATE (9) Recovering alcoholic in remission Code(s): F10.21 - ALCOHOL DEPENDENCE, IN REMISSION (10) Atrial fibrillation with RVR Code(s): I48.91 - UNSPECIFIED ATRIAL FIBRILLATION (11) Chest pain Code(s): R07.9 - CHEST PAIN, UNSPECIFIED Qualifiers: Chest pain type: other chest pain Qualified Code(s): R07.89 - Other chest pain; R07.8 - Other chest pain (12) [place] cardiac risk >20% in next 10 years Code(s): Z91.89 - OTH PERSONAL RISK FACTORS, NOT ELSEWHERE CLASSIFIED (13) HLD (hyperlipidemia) Code(s): E78.5 - HYPERLIPIDEMIA, UNSPECIFIED (14) HTN (hypertension) Code(s): I10 - ESSENTIAL (PRIMARY) HYPERTENSION (15) New onset a-fib Code(s): I48.91 - UNSPECIFIED ATRIAL FIBRILLATION (16) SOB (shortness of breath) on exertion Code(s): R06.02 - SHORTNESS OF BREATH Assessment/Plan af htn hlp Plan rate control telemetry echo Lovonox for AC Colonoscopy 11-25-18
[2018-11-23] MEDS ORDERED: ENOXAPARIN NA (PORCINE) 80 MG/0.8 ML DISP.SYRIN SQ ONE (10:22)
--- NOTE | 2018-11-23 10:52 | HP ---
CHIEF COMPLAINT: palpitations PCP: Dr. Mccarthy HISTORY OF PRESENT ILLNESS: Patient is a 73 y/o male with a history of afib, HLD, bladder and prostate cancer, and GERD who presents for palpitations. Patient was scheduled for an outpatient colonoscopy today. Yesterday afternoon he took the bowel prep and his elliquis had been held since Wednesday. Patient woke up at 4 am and felt off. He felt a little pressure in his chest, he felt unwell, and some diaphoresis. He felt the symptoms again while in the shower. He was noted to have palpitations at his colonoscopy appointment so he was sent to the ED and found to have afib. Patient received lopressor with boluses of fluid. Patient reports he is feeling better, still has the pressure slightly. Patient took his metoprolol today. Patient was diagnosed with bladder cancer in 2004, he follows up with Dr. james regularly and de guzman his PSA checked every 6 months. In 2008 he underwent radiation therapy for his prostate cancer and it is also being watched. ER course was notable for: (1) (2) (3) Recent Travel: PAST MEDICAL HISTORY: afib, HLD, bladder and prostate cancer, and GERD PAST SURGICAL HISTORY: b/l hernia Social History: Smoking: quit 33 years ago Alcohol: has not drank in 14 years Drugs: denies Allergies No Known Drug Allergies Allergy (Verified 11/03/17 13:05) HOME MEDICATIONS: Home Medications Medication Instructions Recorded Atorvastatin Ca [Lipitor] 20 mg PO HS #0 tablet 09/29/12 Docosahexanoic Acid/Epa [Fish Oil 1 each PO DAILY 06/13/13 Softgel] Multivitamin with Minerals [One 1 each PO DAILY 06/13/13 Daily] Ascorbic Acid [Vitamin C] 1,000 mg PO DAILY 11/03/17 Apixaban [Eliquis -] 5 mg PO BID #60 tablet 11/05/17 Metoprolol Succinate [Toprol XL -] 25 mg PO BID #60 tab.sr.24h 11/05/17 REVIEW OF SYSTEMS CONSTITUTIONAL: diaphoresis, Absent: fever, chills, generalized weakness, malaise, loss of appetite, weight change HEENT: Absent: rhinorrhea, nasal congestion, throat pain, throat swelling, difficulty swallowing, mouth swelling, ear pain, eye pain, visual changes CARDIOVASCULAR: palpitations, Absent: chest pain, syncope, irregular heart rate, lightheadedness, peripheral edema RESPIRATORY: Absent: cough, shortness of breath, dyspnea with exertion, orthopnea, wheezing, stridor, hemoptysis GASTROINTESTINAL: Absent: abdominal pain, abdominal distension, nausea, vomiting, diarrhea, constipation, melena, hematochezia GENITOURINARY: Absent: dysuria, frequency, urgency, hesitancy, hematuria, flank pain, genital pain MUSCULOSKELETAL: Absent: myalgia, arthralgia, joint swelling, back pain, neck pain SKIN: Absent: rash, itching, pallor HEMATOLOGIC/IMMUNOLOGIC: Absent: easy bleeding, easy bruising, lymphadenopathy, frequent infections ENDOCRINE: Absent: unexplained weight gain, unexplained weight loss, heat intolerance, cold intolerance NEUROLOGIC: Absent: headache, focal weakness or paresthesias, dizziness, unsteady gait, seizure, mental status changes, bladder or bowel incontinence PSYCHIATRIC: Absent: anxiety, depression, suicidal or homicidal ideation, hallucinations. PHYSICAL EXAMINATION Vital Signs - 24 hr 11/23/18 11/23/18 11/23/18 08:11 08:35 08:40 Temperature 98.4 F Pulse Rate 140 H Pulse Rate [ 132 H Apical] Respiratory 20 20 Rate Blood Pressure 100/62 115/73 Blood Pressure 115/73 [Left Arm] O2 Sat by Pulse 93 L 98 Oximetry (%) 11/23/18 11/23/18 09:05 09:17 Temperature Pulse Rate Pulse Rate [ 112 H Apical] Respiratory 16 Rate Blood Pressure 139/77 Blood Pressure 139/77 [Left Arm] O2 Sat by Pulse 95 Oximetry (%) GENERAL: Awake, alert, and fully oriented, in no acute distress. HEAD: Normal with no signs of trauma. EYES: Pupils equal, round and reactive to light, extraocular movements intact, EARS, NOSE, THROAT: multiple molars with cavities, Moist mucous membranes. LUNGS: Breath sounds equal, clear to auscultation bilaterally. No wheezes, and no crackles. No accessory muscle use. HEART: irregularly irregular, no murmurs ABDOMEN: Soft, nontender, not distended, normoactive bowel sounds, no guarding, no rebound, no masses. LOWER EXTREMITIES: 2+ pulses, warm, well-perfused. No calf tenderness. No peripheral edema. SKIN: Warm, dry, normal turgor, no rashes or lesions noted, normal capillary refill. CBC, BMP 11/23/18 08:55 11/23/18 08:55 ASSESSMENT/PLAN: Patient is a 73 y/o male with a history of HLD, bladder cancer, prostate cancer , afib ( on eliquis), and GERD who is admitted for afib with RVR. #afib with RVR - 2/2 to recent hypovolemia with bowel prep, with concomitant stoppage of medications - begin Lovenox 90 BID, hold lovenox wednesday dose pre colonoscopy - patient given 5 mg IV lopressor in ED - BP labile, patient received bolus of fluids , continue NS @ 100 - last Echo 11/04/17 : normal LVEF, normal chamber size, moderate sever AR, moderate AR, EF normal - 11/03/17 stress test: no wall abnormalities, PVC during excercise, Ef: 56% - f/u Echo ordered - followed by Cardio - continued Metoprolol succinate 25 bid - lopressor 2.5 q4h for tacycardia #colonosocopy - schedueld for wednesday morning - patient to continue clear liquid diet until then - hold lovenox dose #bladder ca and prostate ca - both being watched with labs and Dr. James #HLD - continue statin #DVT ppx - on Lovenox FEN - clear liquid Dispo: monitor on tele Visit type - Emergency Visit Emergency Visit: Yes ED Registration Date: 11/23/18 Care time: The patient presented to the Emergency Department on the above date and was hospitalized for further evaluation of their emergent condition. - New Patient This patient is new to me today: Yes Date on this admission: 11/25/18 - Critical Care Critical Care patient: No ATTENDING PHYSICIAN STATEMENT I saw and evaluated the patient. I reviewed the resident's note and discussed the case with the resident. I agree with the resident's findings and plan as documented. SUBJECTIVE: OBJECTIVE: ASSESSMENT AND PLAN:
[2018-11-23] MEDS ORDERED: ENOXAPARIN NA (PORCINE) 100 MG/1 ML DISP.SYRIN SQ ONE (11:21)
[2018-11-23] MEDS ORDERED: METOPROLOL TARTRATE 5 MG/5 ML VIAL IVPUSH PRN (11:33)
[2018-11-23] MEDS: SODIUM CHLORIDE 1,000 ML IV SCH ×2 (11:45→22:12)
--- NOTE | 2018-11-23 12:04 | EKG ---
Test Reason : Blood Pressure : / mmHG Vent. Rate : 102 BPM Atrial Rate : 129 BPM P-R Int : 000 ms QRS Dur : 096 ms QT Int : 322 ms P-R-T Axes : 000 020 040 degrees QTc Int : 419 ms ATRIAL FIBRILLATION WITH RAPID VENTRICULAR RESPONSE ABNORMAL ECG WHEN COMPARED WITH ECG OF 23-NOV-2018 08:10, CRITERIA FOR SEPTAL INFARCT ARE NO LONGER PRESENT NONSPECIFIC T WAVE ABNORMALITY NO LONGER EVIDENT IN INFERIOR LEADS Confirmed by LEONARD LYLE MD ([id number]) on 11/23/2018 12:04:08 PM Referred By: Confirmed By:LEONARD LYLE MD
--- NOTE | 2018-11-23 12:13 | EKG ---
Test Reason : Blood Pressure : / mmHG Vent. Rate : 131 BPM Atrial Rate : 133 BPM P-R Int : 000 ms QRS Dur : 098 ms QT Int : 310 ms P-R-T Axes : 000 015 -36 degrees QTc Int : 457 ms ATRIAL FIBRILLATION WITH RAPID VENTRICULAR RESPONSE SEPTAL INFARCT , AGE UNDETERMINED CANNOT RULE OUT INFERIOR INFARCT , AGE UNDETERMINED ABNORMAL ECG WHEN COMPARED WITH ECG OF 03-NOV-2017 18:58, ATRIAL FIBRILLATION HAS REPLACED SINUS RHYTHM VENT. RATE HAS INCREASED BY 59 BPM SEPTAL INFARCT IS NOW PRESENT NONSPECIFIC T WAVE ABNORMALITY NOW EVIDENT IN INFERIOR LEADS Confirmed by LEONARD LYLE MD ([id number]) on 11/23/2018 12:13:15 PM Referred By: Confirmed By:LEONARD LYLE MD
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
--- NOTE | 2018-11-23 15:41 | ECHO ---
Name: LJ RUSSELL Exam:Adult Echocardiogram Study Date: 11/23/2018 11:21 AM Age: 73 yrs Reason For Study: ef Height: 69 in Weight: 205 lb BSA: 2.1 m2 MMode/2D Measurements & Calculations IVSd: 1.4 cm Ao root diam: 3.3 cm LVIDd: 4.0 cm LA dimension: 4.0 cm LVIDs: 2.9 cm LVPWd: 1.2 cm EDV(Teich): 68.6 ml LVOT diam: 2.0 cm ESV(Teich): 32.9 ml LAV (MOD-bp): 66.9 ml Doppler Measurements & Calculations MV E max tyrell: 115.0 cm/sec Ao V2 max: 184.6 cm/sec MV A max tyrell: 79.1 cm/sec Ao max P.6 mmHg MV E/A: 1.5 Ao V2 mean: 133.8 cm/sec MV dec time: 0.11 sec Ao mean P.2 mmHg Ao V2 VTI: 30.0 cm KIARRA(I,D): 1.4 cm2 AI P1/2t: 512.3 msec KIARRA(V,D): 1.4 cm2 AI max tyrell: 335.4 cm/sec LV V1 max P.6 mmHg AI max P.1 mmHg LV V1 mean P.4 mmHg AI dec slope: 191.7 cm/sec2 LV V1 max: 80.0 cm/sec LV V1 mean: 55.9 cm/sec LV V1 VTI: 13.9 cm MR max tyrell: 440.0 cm/sec SV(LVOT): 43.4 ml MR max P.9 mmHg TR max tyrell: 298.2 cm/sec PA V2 max: 115.4 cm/sec TR max P.0 mmHg PA max P.3 mmHg Med Peak E' Tyrell: 7.4 cm/sec PI Vmax: 167.0 cm/sec Med E/e': 15.5 Lat Peak E' Tyrell: 7.6 cm/sec Lat E/e': 15.1 Procedure A two-dimensional transthoracic echocardiogram with color flow and Doppler was performed. Left Ventricle The left ventricular size, thickness and function are normal. The left ventricular ejection fraction is normal. The left ventricular wall motion is normal. Mitral Valve There is mild mitral valve thickening. There is no mitral valve stenosis. There is mild to moderate m itral regurgitation. Tricuspid Valve The tricuspid valve is not well visualized. There is no tricuspid stenosis. There is severe tricuspid regurgitation. Right ventricular systolic pressure is elevated at 40-50mmHg. Aortic Valve The aortic valve is not well visualized. No hemodynamically significant valvular aortic stenosis. Mil d aortic regurgitation. Pulmonic Valve The pulmonic valve is not well visualized. There is no pulmonic valvular stenosis. Mild pulmonic valv ular regurgitation. Great Vessels The aortic root is normal size. Pericardium/Pleura There is no pericardial effusion. Interpretation Summary The left ventricular size, thickness and function are normal The left ventricular ejection fraction is normal. The left ventricular wall motion is normal. There is severe tricuspid regurgitation. Right ventricular systolic pressure is elevated at 40-50mmHg. Mild aortic regurgitation. There is mild to moderate mitral regurgitation. MD Mike Chavez 11/23/2018 03:41 PM
[2018-11-23] MEDS: METOPROLOL TARTRATE 5 MG/5 ML VIAL IVPB PRN (17:29)
--- NOTE | 2018-11-23 19:29 | PN ---
Teaching Attending Note Name of Resident: Karen Haque ATTENDING PHYSICIAN STATEMENT I saw and evaluated the patient. I reviewed the resident's note and discussed the case with the resident. I agree with the resident's findings and plan as documented. SUBJECTIVE: Seen and examined at bedside. Feeling well, eating jello and drinking juice. OBJECTIVE: Vital Signs Period Temp Pulse Resp BP Sys/Nieto Pulse Ox Last 24 Hr 98.4 F-98.5 F 104-140 16-20 100-139/62-78 93-98 PHYSICAL EXAM: General: NAD CVS: s1s2, irreg irreg, tachycardic Lungs: CTA b/l, unlabored Abdomen: soft, nt/nd, nabs Ext: no cce Current Medications Generic Name Dose Route Start Last Admin Trade Name Freq PRN Reason Stop Dose Admin Atorvastatin Calcium 20 mg 11/23/18 22:00 Lipitor - PO HS FIDENCIO Enoxaparin Sodium 90 mg 11/23/18 22:00 Lovenox - SQ 11/24/18 14:00 BID FIDENCIO Sodium Chloride 1,000 mls @ 100 mls/hr 11/23/18 10:45 11/23/18 11:45 Normal Saline - IV 100 mls/hr ASDIR FIDENCIO Administration Metoprolol Succinate 50 mg 11/23/18 19:00 11/23/18 18:58 Toprol Xl - PO 50 mg BID FIDENCIO Administration Metoprolol Tartrate 2.5 mg 11/23/18 11:44 11/23/18 17:29 Lopressor Injection - IVPB 2.5 mg Q4H PRN Administration TACHYCARDIA Laboratory Results - last 24 hr 11/23/18 11/23/18 11/23/18 08:55 08:55 08:55 WBC 8.2 RBC 4.42 Hgb 14.3 Hct 41.6 MCV 94.1 MCH 32.4 MCHC 34.4 RDW 13.1 Plt Count 328 D MPV 7.5 Absolute Neuts (auto) 4.9 Neutrophils % 60.3 D Lymphocytes % 16.5 D Monocytes % 11.0 H Eosinophils % 11.8 H Basophils % 0.4 Nucleated RBC % 0 PT with INR 13.90 H INR 1.18 H Sodium 141 Potassium 4.8 Chloride 108 H Carbon Dioxide 29 Anion Gap 5 L BUN 11.8 Creatinine 1.1 Est GFR (CKD-EPI)AfAm 77.86 Est GFR (CKD-EPI)NonAf 67.18 Random Glucose 115 H Calcium 8.7 Magnesium Total Bilirubin 0.4 AST 17 ALT 22 Alkaline Phosphatase 78 Creatine Kinase 75 Troponin I 0.02 Total Protein 6.5 Albumin 3.6 11/23/18 08:55 WBC RBC Hgb Hct MCV MCH MCHC RDW Plt Count MPV Absolute Neuts (auto) Neutrophils % Lymphocytes % Monocytes % Eosinophils % Basophils % Nucleated RBC % PT with INR INR Sodium Potassium Chloride Carbon Dioxide Anion Gap BUN Creatinine Est GFR (CKD-EPI)AfAm Est GFR (CKD-EPI)NonAf Random Glucose Calcium Magnesium 2.2 Total Bilirubin AST ALT Alkaline Phosphatase Creatine Kinase Troponin I Total Protein Albumin ALL IMAGING REPORTS REVIEWED ASSESSMENT: A.FIB with RVR 2/2 to volume depletion following colonoscopy prep HLD Bladder/Prostate CA GERD PLAN: -IV fluids -rate control, metoprolol dose increased -holding eliquis, started on lovenox -C-scope planned for Wednesday morning (was being done for surveillance) -cardio following, echo ordered
[2018-11-23 19:41] VITALS: BMI 29.5
[2018-11-23] MEDS: ENOXAPARIN NA (PORCINE) 100 MG/1 ML DISP.SYRIN SQ SCH (21:53)
[2018-11-23] MEDS: ATORVASTATIN CA 20 MG TABLET (FP) PO SCH (21:54)
[2018-11-23] MEDS ORDERED: metoPROLOL SUCCINATE 25 MG TAB.SR.24H (FP) PO SCH (22:00)
[2018-11-24] MEDS: METOPROLOL TARTRATE 5 MG/5 ML VIAL IVPB PRN ×3 (03:53→12:10)
[2018-11-24 06:26] LABS: HEMATOCRIT 38.8 % (35.4-49); HEMOGLOBIN 13.3 GM/dL (11.7-16.9); MCH 32.2 pg (25.7-33.7); MCHC 34.3 g/dl (32.0-35.9); MEAN CELL VOLUME 93.9 fl (80-96); MEAN PLT VOLUME 7.9 fl (7.5-11.1); PLATELET COUNT 275 K/MM3 (134-434); RBC 4.13 M/mm3 (4.00-5.60); RDW 13.2 % (11.9-15.9); WHITE BLOOD COUNT 7.3 K/mm3 (4.0-10.0)
[2018-11-24 06:31] LABS: ALBUMIN 3.2 g/dl (3.4-5.0); BILIRUBIN,TOTAL 0.4 mg/dL (0.2-1); BLOOD UREA NITROGEN 10.2 mg/dL (7-18); CALCIUM 8.3 mg/dL (8.5-10.1); CREATININE 0.8 mg/dL (0.55-1.3); PHOSPHOROUS 2.6 mg/dL (2.5-4.9); POTASSIUM 4.3 mmol/L (3.5-5.1); TOT PROT 5.9 g/dl (6.4-8.2)
[2018-11-24] MEDS: ENOXAPARIN NA (PORCINE) 100 MG/1 ML DISP.SYRIN SQ SCH (09:03)
[2018-11-24] MEDS: SODIUM CHLORIDE 1,000 ML IV SCH ×3 (09:17→21:22)
--- NOTE | 2018-11-24 12:11 | EKG ---
Test Reason : Blood Pressure : / mmHG Vent. Rate : 116 BPM Atrial Rate : 182 BPM P-R Int : 000 ms QRS Dur : 092 ms QT Int : 344 ms P-R-T Axes : 000 014 006 degrees QTc Int : 478 ms ATRIAL FIBRILLATION WITH RAPID VENTRICULAR RESPONSE ABNORMAL ECG WHEN COMPARED WITH ECG OF 23-NOV-2018 09:32, NONSPECIFIC T WAVE ABNORMALITY NOW EVIDENT IN INFERIOR LEADS Confirmed by BRADFORD PEARCE MD ([id number]) on 11/24/2018 12:11:04 PM Referred By: Confirmed By:BRADFORD PEARCE MD
[2018-11-24] MEDS ORDERED: METOPROLOL TARTRATE 5 MG/5 ML VIAL IVPUSH ONE ×2 (12:38→12:41)
--- NOTE | 2018-11-24 13:25 | PN ---
Progress Note, Physician Chief Complaint: Pt A&Ox3; asmptomatic. Walks in the room without palpitations, chest pain, dizziness, or dyspnea. History of Present Illness: The patient is a 73 year old male (tabitha Ayala) with a past medical history of HLD, bladder cancer, prostate cancer, afib (on eliquis), and GERD here today for evaluation of palpitations. The patient reports that he was scheduled for a routine colonoscopy and stopped taking his eliquis on wednesday (11/20/18). He noted feeling palpitations around 5 AM this morning but went to the endoscopy suite where he was noted to have rapid afib and sent to the ED. Patient denies headache, lightheadedness. Denies fever, chills. Denies chest pain, shortness of breath. Denies nausea, vomiting, diarrhea, abdominal pain. Allergies: NKDA PCP: Alexx Mccarthy GI: Tanvir Morse Cards: Rajeev Heck - Current Medication List Current Medications: Active Medications Atorvastatin Calcium (Lipitor -) 20 mg PO HS [facility] Last Admin: 11/23/18 21:54 Dose: 20 mg Enoxaparin Sodium (Lovenox -) 90 mg SQ BID [facility] Sodium Chloride (Normal Saline -) 1,000 mls @ 100 mls/hr IV ASDIR [facility] Last Admin: 11/24/18 12:10 Dose: Not Given Metoprolol Succinate (Toprol Xl -) 50 mg PO ONCE ONE Stop: 11/24/18 12:56 Metoprolol Succinate (Toprol Xl -) 75 mg PO BID [facility] Metoprolol Tartrate (Lopressor Injection -) 2.5 mg IVPB Q4H PRN PRN Reason: TACHYCARDIA Last Admin: 11/24/18 12:10 Dose: 2.5 mg - Objective Vital Signs: Vital Signs Temperature 97.7 F 11/24/18 09:05 Pulse Rate 121 H 11/24/18 12:55 Respiratory Rate 16 11/24/18 12:55 Blood Pressure 127/70 11/24/18 12:55 O2 Sat by Pulse Oximetry (%) 98 11/24/18 09:30 Constitutional: Yes: Calm Eyes: Yes: WNL HENT: Yes: WNL Neck: Yes: WNL Cardiovascular: Yes: Pulse Irregular, S1 (varies in intensity), S2 Respiratory: Yes: Regular Gastrointestinal: Yes: Soft ...Rectal Exam: Yes: Deferred Genitourinary: No: Anuria Musculoskeletal: Yes: WNL Extremities: Yes: WNL Edema: No Peripheral Pulses WNL: Yes Integumentary: Yes: WNL Neurological: Yes: WNL ...Motor Strength: WNL Psychiatric: Yes: WNL Labs: CBC, BMP 11/24/18 05:17 11/24/18 05:17 INR, PTT INR 1.18 (0.83-1.09) H 11/23/18 08:55 - ....Imaging Chest X-ray: Image Reviewed (no acute pathology) EKG: Image Reviewed (AF with RVR) Problem List - Problems (1) Atrial fibrillation with RVR Assessment/Plan: Metoprolol increased to 75 mg bid (succinate). F/u HR and BP Start PO anticoagulation per GI once procedure is completed tomorrow. If biopsies are taken, it may be days before a DOAC can be started, as it will enter the system quickly. Code(s): I48.91 - UNSPECIFIED ATRIAL FIBRILLATION (2) HTN (hypertension) Code(s): I10 - ESSENTIAL (PRIMARY) HYPERTENSION (3) Diverticulosis Assessment/Plan: HR cotrol for AF: metoprolol increasd to 75 mg bid. From a cardiac standpoint, there are no absolute containdications for Mr Woodward to undergo colonoscopy tomorrow Code(s): K57.90 - DVRTCLOS OF INTEST, PART UNSP, W/O PERF OR ABSCESS W/O BLEED
--- NOTE | 2018-11-24 15:03 | PN ---
Teaching Attending Note Name of Resident: Fredy Suarez ATTENDING PHYSICIAN STATEMENT I saw and evaluated the patient. I reviewed the resident's note and discussed the case with the resident. I agree with the resident's findings and plan as documented with exceptions below. SUBJECTIVE: patient seen and examined, occasional palpitations, Overall better. OBJECTIVE: Vital Signs Period Temp Pulse Resp BP Sys/Nieto Pulse Ox Last 24 Hr 97.7 F-98.5 F 91-130 16-20 102-135/57-81 94-98 Intake & Output 11/21/18 11/22/18 11/23/18 11/24/18 23:59 23:59 23:59 23:59 Intake Total 900 1300 Balance 900 1300 Weight 200 lb General: sitting in bed in no acute distress CVS:S1S2 irregularly irregular, tachycardic Chest: CTAB, no rales or wheezing Abdomen:Soft, NT Extremities: no edema Home Medications Medication Instructions Recorded Atorvastatin Ca [Lipitor] 20 mg PO HS #0 tablet 09/29/12 Apixaban [Eliquis -] 5 mg PO BID #60 tablet 11/05/17 Metoprolol Succinate [Toprol XL -] 25 mg PO BID #60 tab.sr.24h 11/05/17 Active Medications Atorvastatin Calcium (Lipitor -) 20 mg PO HS FIDENCIO Last Admin: 11/23/18 21:54 Dose: 20 mg Enoxaparin Sodium (Lovenox -) 90 mg SQ BID [facility] Sodium Chloride (Normal Saline -) 1,000 mls @ 100 mls/hr IV ASDIR FIDENCIO Last Admin: 11/24/18 12:10 Dose: Not Given Metoprolol Succinate (Toprol Xl -) 75 mg PO BID FIDENCIO Metoprolol Tartrate (Lopressor Injection -) 2.5 mg IVPB Q4H PRN PRN Reason: TACHYCARDIA Last Admin: 11/24/18 12:10 Dose: 2.5 mg Laboratory Results - last 24 hr 11/24/18 11/24/18 11/24/18 03:40 05:17 05:17 WBC 7.3 RBC 4.13 Hgb 13.3 Hct 38.8 MCV 93.9 MCH 32.2 MCHC 34.3 RDW 13.2 Plt Count 275 MPV 7.9 Sodium 141 Potassium 4.3 Chloride 108 H Carbon Dioxide 30 Anion Gap 3 L BUN 10.2 Creatinine 0.8 Est GFR (CKD-EPI)AfAm 104.17 Est GFR (CKD-EPI)NonAf 89.88 Random Glucose 96 Calcium 8.3 L Phosphorus 2.6 Magnesium 2.0 Total Bilirubin 0.4 AST 15 ALT 20 Alkaline Phosphatase 75 Troponin I 0.03 Total Protein 5.9 L Albumin 3.2 L TSH 0.91 D 2D echo results reviewed ASSESSMENT AND PLAN: 73 yom with PMHx of Afib on eliquis, HTN, HLD, GERD/PUD, Colonic adenoma, Prostate ca s/p radiation, Bladder Ca s/p TURBT/Surgery, admitted with rapid afib when planned for outpatient colonoscopy, procedure aborted. -Afib with RVR, ?In the setting of hypovolumia from bowel prep/NPO -H/o Colonic adenoma, for Colonoscopy -HTN -HLD -Severe tricuspid regurgitation -PUD/GERD/h/o H. Pylori gastritis -Prostate Ca s/p radiation -Bladder Ca s/p TURBT/Surgery Plan: Still tachycardic, metoprolol increased. Hold eliquis, Lovenox 90 mg BID, to be held tonight. TSH, 2D echo noted Plan for colonscopy tomorrow if HR improved. May need to defer to outpatient in the future if unable to control HR, discussed with patient. IVF with monitoring of volume status DVTPPX as above Dispo pending clinical improvement. Discussed with patient and nursing.
[2018-11-24] MEDS ORDERED: MAGNESIUM CITRATE 300 ML BOTTLE PO ONE (15:11)
[2018-11-24] MEDS ORDERED: dilTIAZem HCL 50 MG/10 ML - 10 ML VIAL IVPUSH ONE (17:33)
[2018-11-24] MEDS: dilTIAZem HCL 30 MG TABLET (FP) PO SCH ×2 (18:16→21:22)
--- NOTE | 2018-11-24 19:48 | PN ---
Physical Exam: SUBJECTIVE: Patient seen and examined. O/N had palpitations, scheduled metoprolol was recommended to be administered early OBJECTIVE: Vital Signs Period Temp Pulse Resp BP Sys/Nieto Pulse Ox Last 24 Hr 97.7 F-98.9 F 91-130 16-20 102-135/57-81 94-98 GENERAL: Awake, alert, and fully oriented, in no acute distress. HEAD: Normal with no signs of trauma. EYES: extraocular movements intact, scleral anicteric, conjunctivae w/o pallor EARS, NOSE, THROAT: multiple molars with cavities, Moist mucous membranes. LUNGS: Breath sounds equal, clear to auscultation bilaterally. No wheezes, and no crackles. No accessory muscle use. HEART: tachy, regular, no murmurs ABDOMEN: Soft, nontender, not distended, normoactive bowel sounds, no guarding, no rebound, no masses. LOWER EXTREMITIES: 2+ pulses, warm, well-perfused. No calf tenderness. No peripheral edema. SKIN: Warm, dry, normal turgor, no rashes or lesions noted, normal capillary refill. Laboratory Results - last 24 hr 11/24/18 11/24/18 11/24/18 03:40 05:17 05:17 WBC 7.3 RBC 4.13 Hgb 13.3 Hct 38.8 MCV 93.9 MCH 32.2 MCHC 34.3 RDW 13.2 Plt Count 275 MPV 7.9 Sodium 141 Potassium 4.3 Chloride 108 H Carbon Dioxide 30 Anion Gap 3 L BUN 10.2 Creatinine 0.8 Est GFR (CKD-EPI)AfAm 104.17 Est GFR (CKD-EPI)NonAf 89.88 Random Glucose 96 Calcium 8.3 L Phosphorus 2.6 Magnesium 2.0 Total Bilirubin 0.4 AST 15 ALT 20 Alkaline Phosphatase 75 Troponin I 0.03 Total Protein 5.9 L Albumin 3.2 L TSH 0.91 D 11/24/18 14:45 WBC RBC Hgb Hct MCV MCH MCHC RDW Plt Count MPV Sodium Potassium Chloride Carbon Dioxide Anion Gap BUN Creatinine Est GFR (CKD-EPI)AfAm Est GFR (CKD-EPI)NonAf Random Glucose Calcium Phosphorus Magnesium Total Bilirubin AST ALT Alkaline Phosphatase Troponin I < 0.02 Total Protein Albumin TSH Active Medications Generic Name Dose Route Start Last Admin Trade Name Freq PRN Reason Stop Dose Admin Atorvastatin Calcium 20 mg 11/23/18 22:00 11/23/18 21:54 Lipitor - PO 20 mg HS FIDENCIO Administration Diltiazem HCl 30 mg 11/24/18 18:00 11/24/18 18:16 Cardizem - PO Not Given TID FIDENCIO Sodium Chloride 1,000 mls @ 100 mls/hr 11/23/18 10:45 11/24/18 12:10 Normal Saline - IV Not Given ASDIR FIDENCIO Metoprolol Succinate 75 mg 11/24/18 22:00 Toprol Xl - PO BID FIDENCIO Metoprolol Tartrate 2.5 mg 11/23/18 11:44 11/24/18 12:10 Lopressor Injection - IVPB 2.5 mg Q4H PRN Administration TACHYCARDIA Vital Signs Temp 98.9 F 11/24/18 16:50 Pulse 96 H 11/24/18 16:50 Resp 18 11/24/18 16:50 BP 113/67 11/24/18 16:50 Pulse Ox 98 11/24/18 09:30 Intake & Output 11/23/18 11/24/18 11/24/18 23:59 11:59 23:59 Intake Total 873 736 2007 Balance 753 767 1685 Weight 90.718 kg Intake: IV 400 800 800 Normal Saline - 1,000 ml 400 800 800 @ 100 mls/hr IV ASDIR FIDENCIO Rx#:[id number] IVPB 50 50 Oral 450 500 Other: Voiding Method Toilet Toilet Toilet # Unmeasured Voids Void 1 2 Bowel Movement Yes Height 5 ft 9 in Body Mass Index (BMI) 29.5 ASSESSMENT/PLAN: 73 y/o male with a history of HLD, bladder cancer, prostate cancer, afib ( on eliquis), and GERD who is admitted for afib with RVR #afib with RVR -- possibly 2/2 to recent hypovolemia with bowel prep > TSH: 0.91 -- normal > Echo 11/04/17 : normal LVEF, normal chamber size, moderate sever AR, moderate AR, EF normal > Echo 11/23/18: LV normal, no wall motion abnorm, severe TR, RVSP 50-50mmHg > 11/03/17 stress test: no wall abnormalities, PVC during excercise, Ef: 56% > troponin 0.02 --> 0.03 - s/p 5 mg IV lopressor in ED - followed by Cardio --Metoprolol succinate 75 bid --lopressor 2.5 q4h for tacycardia #colonosocopy - schedueld for wednesday morning #bladder ca and prostate ca - both being watched with labs and Dr. Avalos #HLD - continue statin #DVT ppx - on Lovenox 90mg BID -- to be held for Wednesday cscope FEN - clear liquid until night - NS @100 Visit type - Emergency Visit Emergency Visit: No - New Patient This patient is new to me today: No - Critical Care Critical Care patient: No ATTENDING PHYSICIAN STATEMENT I saw and evaluated the patient. I reviewed the resident's note and discussed the case with the resident. I agree with the resident's findings and plan as documented. SUBJECTIVE: OBJECTIVE: ASSESSMENT AND PLAN:
--- NOTE | 2018-11-24 20:33 | PN.GI ---
GI Progress Note Subjective: GI NOte: Still in [place] but slower. Communicated with Dr Maria R quinonez who will make a decision in the AM as to the cardiac fitness for colonoscopy. Citroma was given today. - Objective Vital Signs: Vital Signs Temperature 98.9 F 11/24/18 16:50 Pulse Rate 96 H 11/24/18 16:50 Respiratory Rate 18 11/24/18 16:50 Blood Pressure 113/67 11/24/18 16:50 O2 Sat by Pulse Oximetry (%) 98 11/24/18 09:30 Constitutional: Anxious Eyes: Yes: Conjunctiva Clear ...Auscultate: Yes: Hyperactive Bowel Sounds ...Palpate: Yes: Soft, Other (nontender) Labs: CBC, BMP 11/24/18 05:17 11/24/18 05:17 INR, PTT INR 1.18 (0.83-1.09) H 11/23/18 08:55 Assessment/Plan Assessment: - Colonoscopy cancelled for hypotension related to M[place] that is likely to have been triggered by he bowel prep. l. - Personal h/o right colon adenoma and due for surveillance - Diverticulosis - HH with GERD - Resolved alcoholic hepatitis with abstinence since 2004 - Fatty liver Plan: -- Will proceed with colonoscopy tomorrow if cardiologically cleared Problem List - Problems (1) Atrial fibrillation with RVR Code(s): I48.91 - UNSPECIFIED ATRIAL FIBRILLATION (2) Acute hypotension Code(s): I95.9 - HYPOTENSION, UNSPECIFIED (3) History of adenomatous polyp of colon Code(s): Z86.010 - PERSONAL HISTORY OF COLONIC POLYPS (4) History of acute alcoholic hepatitis Code(s): Z87.19 - PERSONAL HISTORY OF OTHER DISEASES OF THE DIGESTIVE SYSTEM (5) Recovering alcoholic in remission Code(s): F10.21 - ALCOHOL DEPENDENCE, IN REMISSION (6) Prostate cancer Code(s): C61 - MALIGNANT NEOPLASM OF PROSTATE (7) Bladder cancer Code(s): C67.9 - MALIGNANT NEOPLASM OF BLADDER, UNSPECIFIED (8) Diverticulosis Code(s): K57.90 - DVRTCLOS OF INTEST, PART UNSP, W/O PERF OR ABSCESS W/O BLEED (9) Hiatal hernia with GERD Code(s): K21.9 - GASTRO-ESOPHAGEAL REFLUX DISEASE WITHOUT ESOPHAGITIS; K44.9 - DIAPHRAGMATIC HERNIA WITHOUT OBSTRUCTION OR GANGRENE (10) Fatty liver Code(s): K76.0 - FATTY (CHANGE OF) LIVER, NOT ELSEWHERE CLASSIFIED (11) HLD (hyperlipidemia) Code(s): E78.5 - HYPERLIPIDEMIA, UNSPECIFIED
[2018-11-24] MEDS: metoPROLOL SUCCINATE 25 MG TAB.SR.24H (FP) PO SCH (21:21)
[2018-11-24] MEDS: ATORVASTATIN CA 20 MG TABLET (FP) PO SCH (21:21)
[2018-11-24] MEDS ORDERED: ENOXAPARIN NA (PORCINE) 100 MG/1 ML DISP.SYRIN SQ SCH ×2 (22:00)
[2018-11-25] MEDS: dilTIAZem HCL 30 MG TABLET (FP) PO SCH ×3 (05:32→22:03)
[2018-11-25] MEDS: METOPROLOL TARTRATE 5 MG/5 ML VIAL IVPB PRN (07:00)
[2018-11-25] MEDS ORDERED: dilTIAZem HCL 60 MG TABLET (FP) PO ONE (09:45)
[2018-11-25] MEDS: metoPROLOL SUCCINATE 25 MG TAB.SR.24H (FP) PO SCH ×2 (10:28→23:43)
--- NOTE | 2018-11-25 12:13 | PN ---
Progress Note (short form) - Note Progress Note: GI Procedure NOte: Please see colonoscopy report. Multiple cecal polyps removed so I have advised Kee to wait 5 days before resuming Eliquis. No GI objections to discharge in AM if cardiologically cleared. Problem List - Problems (1) Atrial fibrillation with RVR Code(s): I48.91 - UNSPECIFIED ATRIAL FIBRILLATION (2) Acute hypotension Code(s): I95.9 - HYPOTENSION, UNSPECIFIED (3) History of adenomatous polyp of colon Code(s): Z86.010 - PERSONAL HISTORY OF COLONIC POLYPS (4) History of acute alcoholic hepatitis Code(s): Z87.19 - PERSONAL HISTORY OF OTHER DISEASES OF THE DIGESTIVE SYSTEM (5) Recovering alcoholic in remission Code(s): F10.21 - ALCOHOL DEPENDENCE, IN REMISSION (6) Prostate cancer Code(s): C61 - MALIGNANT NEOPLASM OF PROSTATE (7) Bladder cancer Code(s): C67.9 - MALIGNANT NEOPLASM OF BLADDER, UNSPECIFIED (8) Diverticulosis Code(s): K57.90 - DVRTCLOS OF INTEST, PART UNSP, W/O PERF OR ABSCESS W/O BLEED (9) Hiatal hernia with GERD Code(s): K21.9 - GASTRO-ESOPHAGEAL REFLUX DISEASE WITHOUT ESOPHAGITIS; K44.9 - DIAPHRAGMATIC HERNIA WITHOUT OBSTRUCTION OR GANGRENE (10) Fatty liver Code(s): K76.0 - FATTY (CHANGE OF) LIVER, NOT ELSEWHERE CLASSIFIED (11) HLD (hyperlipidemia) Code(s): E78.5 - HYPERLIPIDEMIA, UNSPECIFIED
--- NOTE | 2018-11-25 12:44 | PN ---
Teaching Attending Note Name of Resident: Fredy Suarez ATTENDING PHYSICIAN STATEMENT I saw and evaluated the patient. I reviewed the resident's note and discussed the case with the resident. I agree with the resident's findings and plan as documented with exceptions below. SUBJECTIVE: Patient seen and examined. No complaints, awaiting colonoscopy when seen. OBJECTIVE: Vital Signs Period Temp Pulse Resp BP Sys/Nieto Pulse Ox Last 24 Hr 97.3 F-98.9 F 67-121 16-22 103-129/58-82 94-99 Intake & Output 11/22/18 11/23/18 11/24/18 11/25/18 23:59 23:59 23:59 23:59 Intake Total 900 2600 1530 Balance 900 2600 1530 Weight 200 lb General: sitting in chair in no acute distress Neck: soft, supple CVS:S1S2 irregularly irregular telemetry: Afib 90s-120s Abdomen: soft, NT, obese Extremities: no edema Home Medications Medication Instructions Recorded Atorvastatin Ca [Lipitor] 20 mg PO HS #0 tablet 09/29/12 Apixaban [Eliquis -] 5 mg PO BID #60 tablet 11/05/17 Metoprolol Succinate [Toprol XL -] 25 mg PO BID #60 tab.sr.24h 11/05/17 Active Medications Atorvastatin Calcium (Lipitor -) 20 mg PO HS [facility] Last Admin: 11/24/18 21:21 Dose: 20 mg Diltiazem HCl (Cardizem -) 60 mg PO TID [facility] Metoprolol Succinate (Toprol Xl -) 75 mg PO BID [facility] Last Admin: 11/25/18 10:28 Dose: 75 mg Metoprolol Tartrate (Lopressor Injection -) 2.5 mg IVPB Q4H PRN PRN Reason: TACHYCARDIA Last Admin: 11/25/18 07:00 Dose: 2.5 mg Laboratory Results - last 24 hr 11/24/18 11/24/18 05:17 14:45 Troponin I < 0.02 TSH 0.91 D ASSESSMENT AND PLAN: 73 yom with PMHx of Afib on eliquis, HTN, HLD, GERD/PUD, Colonic adenoma, Prostate ca s/p radiation, Bladder Ca s/p TURBT/Surgery, admitted with rapid afib when planned for outpatient colonoscopy, procedure aborted. -Afib with RVR, ?In the setting of hypovolumia from bowel prep/NPO -H/o Colonic adenoma, for Colonoscopy -HTN -HLD -Severe tricuspid regurgitation -PUD/GERD/h/o H. Pylori gastritis -Prostate Ca s/p radiation -Bladder Ca s/p TURBT/Surgery Plan: Overnight tachycardia, HR stable this AM S/p colonoscopy, results noted. Resume Eliquis after 5 days, AC per GI/cardiology. Metoprolol increaesed 75 mg BID. TSH, 2D echo noted dc IVF. PO as tolerated. DVTPPX as above Dispo dc in 24 hours if HR controlled and no new events. Discussed with patient and nursing.
[2018-11-25] MEDS: SODIUM CHLORIDE 1,000 ML IV SCH (14:43)
--- NOTE | 2018-11-25 16:31 | PN ---
Progress Note, Physician Chief Complaint: Pt A&Ox3; asmptomatic. Walks in the room without palpitations, chest pain, dizziness, or dyspnea. - Current Medication List Current Medications: Active Medications Atorvastatin Calcium (Lipitor -) 20 mg PO HS [facility] Last Admin: 11/24/18 21:21 Dose: 20 mg Diltiazem HCl (Cardizem -) 60 mg PO TID [facility] Last Admin: 11/25/18 14:45 Dose: 60 mg Metoprolol Succinate (Toprol Xl -) 75 mg PO BID [facility] Last Admin: 11/25/18 10:28 Dose: 75 mg Metoprolol Tartrate (Lopressor Injection -) 2.5 mg IVPB Q4H PRN PRN Reason: TACHYCARDIA Last Admin: 11/25/18 07:00 Dose: 2.5 mg - Objective Vital Signs: Vital Signs Temperature 98.1 F 11/25/18 14:05 Pulse Rate 102 H 11/25/18 14:05 Respiratory Rate 18 11/25/18 14:05 Blood Pressure 115/77 11/25/18 14:05 O2 Sat by Pulse Oximetry (%) 99 11/25/18 12:22 Constitutional: Yes: No Distress Eyes: Yes: WNL HENT: Yes: WNL Neck: Yes: WNL Cardiovascular: Yes: WNL, Pulse Irregular Respiratory: Yes: WNL Gastrointestinal: Yes: Soft. No: Tenderness ...Rectal Exam: Yes: Deferred Genitourinary: No: Anuria Musculoskeletal: Yes: WNL Extremities: Yes: WNL Edema: No Peripheral Pulses WNL: Yes Integumentary: Yes: WNL Neurological: Yes: WNL ...Motor Strength: WNL Psychiatric: Yes: WNL Labs: CBC, BMP 11/24/18 05:17 11/24/18 05:17 INR, PTT INR 1.18 (0.83-1.09) H 11/23/18 08:55 - ....Imaging Other: Image Reviewed (telemetry: AF 90-110 bpm at rest; rises to 140s with mild exertion (walking to the bathroom)) Problem List - Problems (1) Atrial fibrillation with RVR Assessment/Plan: Diltiazem 30 mg q8h was started yesterday for AF with RVR, and increased to 60 mg q8h today; metoprolol ER 75 bid is also part of his regimen. Will change to once daily long-acting agents tomorrow for easier compliance. F/u GI advice for when to start apixaban post-procedure. If HR remains stable, consider discharge home over the weekend from cardiac viewpoint and follow as outpatient. Problems reviewed: Yes Code(s): I48.91 - UNSPECIFIED ATRIAL FIBRILLATION (2) HTN (hypertension) Assessment/Plan: On metoprolol and diltiazem for AF and HTN. Code(s): I10 - ESSENTIAL (PRIMARY) HYPERTENSION (3) Diverticulosis Assessment/Plan: HR cotrol for AF: metoprolol increasd to 75 mg bid. DIltiazem increased to 60 mg q8h From a cardiac standpoint, there are no absolute containdications for Mr Woodward to undergo colonoscopy today Code(s): K57.90 - DVRTCLOS OF INTEST, PART UNSP, W/O PERF OR ABSCESS W/O BLEED (4) HLD (hyperlipidemia) Assessment/Plan: on atorvastatin Code(s): E78.5 - HYPERLIPIDEMIA, UNSPECIFIED
--- NOTE | 2018-11-25 17:29 | PN ---
Physical Exam: SUBJECTIVE: Patient seen and examined. O/N: Had multiple episodes of tachy on tele. Had multiple clear BMs after bowel prep. Endorses hunger OBJECTIVE: Vital Signs Period Temp Pulse Resp BP Sys/Nieto Pulse Ox Last 24 Hr 97.3 F-98.8 F 67-110 16-22 103-129/58-82 94-99 GENERAL: Awake, alert, in no acute distress. HEAD: Normal with no signs of trauma. EYES: scleral anicteric, conjunctivae w/o pallor EARS, NOSE, THROAT: Moist mucous membranes. LUNGS: Breath sounds equal, clear to auscultation bilaterally. No wheezes, and no crackles. No accessory muscle use. HEART: tachy, regular, no murmurs ABDOMEN: Soft, nontender, not distended, normoactive bowel sounds, no guarding, no rebound, no masses. LOWER EXTREMITIES: 2+ pulses, warm, well-perfused. No calf tenderness. No peripheral edema. SKIN: Warm, dry. Active Medications Generic Name Dose Route Start Last Admin Trade Name Freq PRN Reason Stop Dose Admin Atorvastatin Calcium 20 mg 11/23/18 22:00 11/24/18 21:21 Lipitor - PO 20 mg HS FIDENCIO Administration Diltiazem HCl 60 mg 11/25/18 09:45 11/25/18 14:45 Cardizem - PO 11/26/18 00:00 60 mg TID FIDENCIO Administration Diltiazem HCl 180 mg 11/26/18 10:00 Cardizem Cd - PO DAILY [facility] Metoprolol Succinate 75 mg 11/24/18 22:00 11/25/18 10:28 Toprol Xl - PO 11/26/18 00:00 75 mg BID FIDENCIO Administration Metoprolol Succinate 150 mg 11/26/18 10:00 Toprol Xl - PO DAILY [facility] Metoprolol Tartrate 2.5 mg 11/23/18 11:44 11/25/18 07:00 Lopressor Injection - IVPB 2.5 mg Q4H PRN Administration TACHYCARDIA Vital Signs Temp 98.1 F 11/25/18 14:05 Pulse 102 H 11/25/18 14:05 Resp 18 11/25/18 14:05 BP 115/77 11/25/18 14:05 Pulse Ox 99 11/25/18 12:22 Intake & Output 11/24/18 11/25/18 11/25/18 23:59 11:59 23:59 Intake Total 1800 1530 400 Balance 1800 1530 400 Intake: IV 800 1500 400 Normal Saline - 1,000 ml 800 1200 400 @ 100 mls/hr IV ASDIR FIDENCIO Rx#:[id number] IVPB 50 Oral 950 30 Other: Voiding Method Toilet Toilet Toilet # Unmeasured Voids Void 1 5 2 Bowel Movement No Yes: watery Yes # Bowel Movements 5 ASSESSMENT/PLAN: 73 y/o male with a history of HLD, bladder cancer, prostate cancer, afib ( on eliquis), and GERD who is admitted for afib with RVR #afib with RVR -- possibly 2/2 to recent hypovolemia with bowel prep > TSH: 0.91 -- normal > Echo 11/04/17 : normal LVEF, normal chamber size, moderate sever AR, moderate AR, EF normal > Echo 11/23/18: LV normal, no wall motion abnorm, severe TR, RVSP 50-50mmHg > 11/03/17 stress test: no wall abnormalities, PVC during excercise, Ef: 56% > troponin 0.02 --> 0.03 - s/p 5 mg IV lopressor in ED - followed by Cardio --Metoprolol succinate 150mg bid --added diltiazem 180mg daily --lopressor 2.5 q4h for tacycardia #colonosocopy > multiple cecal polypectomies - rec HOLD AC for 5d post-cscope #bladder ca and prostate ca - both being watched with labs and Dr. Avalos #HLD - continue statin #DVT ppx - to be held until 11/30/18 FEN - sodium-controlled diet Visit type - Emergency Visit Emergency Visit: No - New Patient This patient is new to me today: No - Critical Care Critical Care patient: No ATTENDING PHYSICIAN STATEMENT I saw and evaluated the patient. I reviewed the resident's note and discussed the case with the resident. I agree with the resident's findings and plan as documented. SUBJECTIVE: OBJECTIVE: ASSESSMENT AND PLAN:
[2018-11-25] MEDS: ATORVASTATIN CA 20 MG TABLET (FP) PO SCH (22:03)
[2018-11-26 06:39] LABS: BASO % 0.2 % (0-2.0); EOS % 10.3 % (0-4.5); HEMATOCRIT 38.2 % (35.4-49); LYMPH % 24.8 % (8-40); MCH 31.9 pg (25.7-33.7); MCHC 34.2 g/dl (32.0-35.9); MEAN CELL VOLUME 93.5 fl (80-96); MEAN PLT VOLUME 7.9 fl (7.5-11.1); MONO % 10.7 % (3.8-10.2); PLATELET COUNT 254 K/MM3 (134-434); RBC 4.08 M/mm3 (4.00-5.60); RDW 12.9 % (11.9-15.9); WHITE BLOOD COUNT 5.8 K/mm3 (4.0-10.0)
[2018-11-26 06:57] LABS: BLOOD UREA NITROGEN 8.6 mg/dL (7-18); CALCIUM 8.3 mg/dL (8.5-10.1); CREATININE 0.7 mg/dL (0.55-1.3); POTASSIUM 4.1 mmol/L (3.5-5.1)
--- NOTE | 2018-11-26 11:27 | PN ---
Progress Note, Physician Chief Complaint: Cardiology for Dr. Heck History of Present Illness: Underwent colonoscopy with multiple cecal polyps removed, advised to wait 5 days post-procedure before resuming Eliquis. Currently in asymptomatic rapid afib w/o chest pain, dyspnea, palpitations, near or true syncope. - Current Medication List Current Medications: Active Medications Atorvastatin Calcium (Lipitor -) 20 mg PO HS [facility] Last Admin: 11/25/18 22:03 Dose: 20 mg Diltiazem HCl (Cardizem Cd -) 180 mg PO DAILY [facility] Last Admin: 11/26/18 09:45 Dose: 180 mg Metoprolol Succinate (Toprol Xl -) 150 mg PO DAILY [facility] Last Admin: 11/26/18 09:45 Dose: 150 mg Metoprolol Tartrate (Lopressor Injection -) 2.5 mg IVPB Q4H PRN PRN Reason: TACHYCARDIA Last Admin: 11/25/18 07:00 Dose: 2.5 mg - Objective Vital Signs: Vital Signs Temperature 97.8 F 11/26/18 10:00 Pulse Rate 113 H 11/26/18 10:00 Respiratory Rate 20 11/26/18 10:00 Blood Pressure 118/68 11/26/18 10:00 O2 Sat by Pulse Oximetry (%) 99 11/26/18 10:00 Constitutional: Yes: No Distress, Calm Neck: Yes: Supple Cardiovascular: Yes: Tachycardia, Pulse Irregular Respiratory: Yes: Regular, CTA Bilaterally Gastrointestinal: Yes: Normal Bowel Sounds, Soft Edema: No Labs: CBC, BMP 11/26/18 05:54 11/26/18 05:45 INR, PTT INR 1.18 (0.83-1.09) H 11/23/18 08:55 - ....Imaging EKG: Report Reviewed (Rapid afib 160s) Assessment/Plan - Problems (1) Atrial fibrillation with RVR Assessment/Plan: Continue Cardizem CD 180 qd and Toprol XL 150 qd, IV Cardizem and Lopressor as needed for rate-control GI recommends starting apixaban 5 days post-procedure. Problems reviewed: Yes Code(s): I48.91 - UNSPECIFIED ATRIAL FIBRILLATION (2) HTN (hypertension) Assessment/Plan: On metoprolol and diltiazem for AF and HTN. Code(s): I10 - ESSENTIAL (PRIMARY) HYPERTENSION (3) Diverticulosis Assessment/Plan: Code(s): K57.90 - DVRTCLOS OF INTEST, PART UNSP, W/O PERF OR ABSCESS W/O BLEED (4) HLD (hyperlipidemia) Assessment/Plan: on atorvastatin 20 [facility] Code(s): E78.5 - HYPERLIPIDEMIA, UNSPECIFIED
--- NOTE | 2018-11-26 11:39 | PN ---
Teaching Attending Note Name of Resident: Archana Daniel ATTENDING PHYSICIAN STATEMENT I saw and evaluated the patient. I reviewed the resident's note and discussed the case with the resident. I agree with the resident's findings and plan as documented with exceptions below. SUBJECTIVE: patient seen and examined, no chest pain, palpitations, dyspnea or dizziness, tolerating diet well. OBJECTIVE: Vital Signs Period Temp Pulse Resp BP Sys/Nieto Pulse Ox Last 24 Hr 97.2 F-98.7 F 67-113 16-22 91-120/54-82 94-99 Intake & Output 11/23/18 11/24/18 11/25/18 11/26/18 23:59 23:59 23:59 23:59 Intake Total 900 2600 2330 Balance 900 2600 2330 Weight 200 lb General: sitting in bed no acute distress CVS:S1S2 irregularly irregular, HR 100s on telemetry Chest: CTAB, no rales or wheezing Abdomen:Soft, NT, ND, pos bowel sounds Extremities: no edema Active Medications Atorvastatin Calcium (Lipitor -) 20 mg PO HS [facility] Last Admin: 11/25/18 22:03 Dose: 20 mg Diltiazem HCl (Cardizem Cd -) 180 mg PO DAILY [facility] Last Admin: 11/26/18 09:45 Dose: 180 mg Diltiazem HCl (Cardizem Injection -) 10 mg IVPUSH Q4H PRN PRN Reason: TACHYCARDIA Metoprolol Succinate (Toprol Xl -) 150 mg PO DAILY [facility] Last Admin: 11/26/18 09:45 Dose: 150 mg Metoprolol Tartrate (Lopressor Injection -) 2.5 mg IVPB Q4H PRN PRN Reason: TACHYCARDIA Last Admin: 11/25/18 07:00 Dose: 2.5 mg Laboratory Results - last 24 hr 11/26/18 11/26/18 05:45 05:54 WBC 5.8 RBC 4.08 Hgb 13.0 Hct 38.2 MCV 93.5 MCH 31.9 MCHC 34.2 RDW 12.9 Plt Count 254 MPV 7.9 Absolute Neuts (auto) 3.2 Neutrophils % 54.0 Lymphocytes % 24.8 D Monocytes % 10.7 H Eosinophils % 10.3 H Basophils % 0.2 Nucleated RBC % 0 Sodium 142 Potassium 4.1 Chloride 107 Carbon Dioxide 30 Anion Gap 5 L BUN 8.6 Creatinine 0.7 Est GFR (CKD-EPI)AfAm 110.04 Est GFR (CKD-EPI)NonAf 94.95 Random Glucose 105 Calcium 8.3 L ASSESSMENT AND PLAN: 73 yom with PMHx of Afib on eliquis, HTN, HLD, GERD/PUD, Colonic adenoma, Prostate ca s/p radiation, Bladder Ca s/p TURBT/Surgery, admitted with rapid afib when planned for outpatient colonoscopy, procedure aborted. -Afib with RVR, ?In the setting of hypovolumia from bowel prep/NPO -H/o Colonic adenoma, for Colonoscopy -HTN -HLD -Severe tricuspid regurgitation -PUD/GERD/h/o H. Pylori gastritis -Prostate Ca s/p radiation -Bladder Ca s/p TURBT/Surgery Plan: Intermittent tachycardia but improved, asymptomatic. Continue toprol/diltiazem Eliquis on hold for 5 days per GI, cardiology input noted. Patient aware. s/p colonoscopy with polyp removal. TSH, 2D echo noted Dispo dc home today if HR improved and no concerns with outpatient GI/ cardiology follow up Discussed with patient and nursing.
[2018-11-26] MEDS ORDERED: dilTIAZem HCL 25 MG/5 ML - 5 ML VIAL IVPUSH PRN (12:00)
[2018-11-26] MEDS ORDERED: dilTIAZem HCL 50 MG/10 ML - 10 ML VIAL IVPUSH PRN (12:00)
[2018-11-26] MEDS ORDERED: dilTIAZem HCL 60 MG TABLET (FP) PO ONE (13:15)
[2018-11-26] MEDS ORDERED: PT OWN MED DRAWER 7, Y5N ONE (18:55)
[2018-11-26] MEDS: ATORVASTATIN CA 20 MG TABLET (FP) PO SCH (21:02)
--- NOTE | 2018-11-27 09:51 | PN ---
Progress Note (short form) - Note Progress Note: Cardiology coverage for Dr. Kasi Heck Chief Complaint: Events noted, notes reviewed, denies any chest pain or dyspnea , currently in sinus rhythm, patient with classic tachy-jami syndrome and paroxysmal atrial fibrillation History of Present Illness: Seen and examined on telemetry. Events noted, notes reviewed, denies any chest pain or dyspnea, currently in sinus rhythm, patient with classic tachy-jami syndrome and paroxysmal atrial fibrillation - Current Medication List Current Medications: Active Medications Current Medications Atorvastatin Calcium (Lipitor -) 20 mg PO HS [facility] Last Admin: 11/26/18 21:02 Dose: 20 mg Diltiazem HCl (Cardizem Injection -) 10 mg IVPUSH Q4H PRN PRN Reason: TACHYCARDIA Diltiazem HCl (Cardizem Cd -) 240 mg PO DAILY [facility] Last Admin: 11/27/18 09:35 Dose: 240 mg Metoprolol Succinate (Toprol Xl -) 150 mg PO DAILY [facility] Last Admin: 11/27/18 09:36 Dose: 150 mg Metoprolol Tartrate (Lopressor Injection -) 2.5 mg IVPB Q4H PRN PRN Reason: TACHYCARDIA Last Admin: 11/25/18 07:00 Dose: 2.5 mg - Review of Systems Constitutional: denies: Chills, Fever Cardiovascular: As noted above Respiratory: denies: Cough or Hemoptysis Gastrointestinal: denies: Abdominal Pain, Constipation, Diarrhea, Melena, Nausea , Rectal Bleeding, Vomiting Musculoskeletal: denies: Back Pain Neurological: denies: Unsteady Gait, Weakness. denies: Dizziness, Headache, Seizure, Syncope - Objective Vital Signs: Last Vital Signs Temp Pulse Resp BP Pulse Ox 98.4 F 104 H 20 124/66 95 11/27/18 06:00 11/27/18 06:00 11/27/18 06:00 11/27/18 06:00 11/26/18 20:44 Intake & Output 11/24/18 11/25/18 11/26/18 11/27/18 23:59 23:59 23:59 23:59 Intake Total 2600 2330 1060 120 Balance 2600 2330 1060 120 HEENT: Atraumatic Neck: Supple Negative JVD Cardiovascular: S1 S2 Regular Rate and Rhythm Respiratory: Clear to A&P Gastrointestinal: Soft Benign Normal Bowel Sounds Ext: No Edema Labs: CBC, BMP 11/26/18 05:54 11/26/18 05:45 Hepatic Panel Total Bilirubin 0.4 mg/dL (0.2-1) 11/24/18 05:17 AST 15 U/L (15-37) 11/24/18 05:17 ALT 20 U/L (13-61) 11/24/18 05:17 Alkaline Phosphatase 75 U/L (45-117) 11/24/18 05:17 Albumin 3.2 g/dl (3.4-5.0) L 11/24/18 05:17 INR, PTT INR 1.18 (0.83-1.09) H 11/23/18 08:55 Assessment/Plan 1. Paroxysmal atrial fibrillation [id number] score of 2 on no A/C therapy- therapy withhold post colonoscopy/polypectomy to be resumed 11/30/2018- Eliquis 2. 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 HTN 4. Hypercholesterolemia 5. Post colonoscopy/polypectomy PLAN: 1. Continue Toprol XL with caution considering above/probable sick sinus syndrome, tachy- jami syndrome 2. Continue Cardizem CD with caution considering above/probable sick sinus syndrome, tachy- jami syndrome 3. To resume A/C on 11/30/2018 as per GI service post colonoscopy/polypectomy 4. If the above noted bradycardia/pauses persist may need to consider pacemaker implant- further evaluation as outpatient Rinku Mendoza MD
--- NOTE | 2018-11-27 12:23 | PN ---
Physical Exam: SUBJECTIVE: Patient seen and examined, no dizziness, palpitations, chest pain or concerns overnight. Feels well. OBJECTIVE: Vital Signs Period Temp Pulse Resp BP Sys/Nieto Pulse Ox Last 24 Hr 97.6 F-98.8 F 53-104 18-20 90-131/50-66 95-98 Intake & Output 11/24/18 11/25/18 11/26/18 11/27/18 23:59 23:59 23:59 23:59 Intake Total 2600 2330 1060 770 Balance 2600 2330 1060 770 GENERAL: sitting in chair in no acute distress neck: soft, supple, no JVD Chest: CTAB, no rales or wheezing Abdomen;Soft, obese, nT extremities: no edema CVS:S1S2 irregularly irregular telemetry HR 30s-150s, overnight 30s with pause noted, currently Afib 90s Active Medications Generic Name Dose Route Start Last Admin Trade Name Freq PRN Reason Stop Dose Admin Atorvastatin Calcium 20 mg 11/23/18 22:00 11/26/18 21:02 Lipitor - PO 20 mg HS FIDENCIO Administration Diltiazem HCl 10 mg 11/26/18 12:00 Cardizem Injection - IVPUSH Q4H PRN TACHYCARDIA Diltiazem HCl 240 mg 11/27/18 10:00 11/27/18 09:35 Cardizem Cd - PO 240 mg DAILY FIDENCIO Administration Metoprolol Succinate 150 mg 11/26/18 10:00 11/27/18 09:36 Toprol Xl - PO 150 mg DAILY FIDENCIO Administration Metoprolol Tartrate 2.5 mg 11/23/18 11:44 11/25/18 07:00 Lopressor Injection - IVPB 2.5 mg Q4H PRN Administration TACHYCARDIA ASSESSMENT/PLAN: 73 yom with PMHx of Afib on eliquis, HTN, HLD, GERD/PUD, Colonic adenoma, Prostate ca s/p radiation, Bladder Ca s/p TURBT/Surgery, admitted with rapid afib when planned for outpatient colonoscopy, procedure aborted. -Afib with RVR, ?In the setting of hypovolumia from bowel prep/NPO -Suspected sick sinus/tachy jami syndrome -H/o Colonic adenoma, for Colonoscopy -HTN -HLD -Severe tricuspid regurgitation -PUD/GERD/h/o H. Pylori gastritis -Prostate Ca s/p radiation -Bladder Ca s/p TURBT/Surgery Plan: Overnight events with tachy jami noted. patient asymptomatic Discussed with cardiology Dr. Mendoza. Will continue telemetry x 24 hours. Further plan for EP input for PPM vs dc with outpatient follow up and med management accordingly. Continue Dilitazem/Toprol XL with caution. Eliquis on hold for 5 days per GI, cardiology input noted. Patient aware. s/p colonoscopy with polyp removal. TSH, 2D echo noted Dispo dc on hold given above. Discussed with patient, nursing and cardiology. Visit type - Emergency Visit Emergency Visit: Yes ED Registration Date: 11/23/18 Care time: The patient presented to the Emergency Department on the above date and was hospitalized for further evaluation of their emergent condition. - New Patient This patient is new to me today: No - Critical Care Critical Care patient: No - Discharge Referral Referred to [facility] Med P.C.: No
[2018-11-27] MEDS: ATORVASTATIN CA 20 MG TABLET (FP) PO SCH (21:06)
[2018-11-28 06:55] LABS: BLOOD UREA NITROGEN 10.4 mg/dL (7-18); CALCIUM 8.4 mg/dL (8.5-10.1); CREATININE 0.8 mg/dL (0.55-1.3); MAGNESIUM 2.1 mg/dL (1.8-2.4); PHOSPHOROUS 3.5 mg/dL (2.5-4.9); POTASSIUM 4.3 mmol/L (3.5-5.1)
--- NOTE | 2018-11-28 09:29 | PN ---
Progress Note, Physician History of Present Illness: The patient is a 73 year old male with a past medical history of HLD, bladder cancer, prostate cancer, afib (on eliquis), and GERD here today for evaluation of palpitations. The patient reports that he was scheduled for a routine colonoscopy and stopped taking his eliquis on wednesday (11/20/18). He noted feeling palpitations around 5 AM this morning but went to the endoscopy suite where he was noted to have rapid afib and sent to the ED. Patient denies headache, lightheadedness. Denies fever, chills. Denies chest pain, shortness of breath. Denies nausea, vomiting, diarrhea, abdominal pain. Allergies: NKDA PCP: Alexx Mccarthy GI: Tanvir Morse Cards: Rajeev Heck - Current Medication List Current Medications: Active Medications Atorvastatin Calcium (Lipitor -) 20 mg PO HS [facility] Last Admin: 11/27/18 21:06 Dose: 20 mg Diltiazem HCl (Cardizem Injection -) 10 mg IVPUSH Q4H PRN PRN Reason: TACHYCARDIA Diltiazem HCl (Cardizem Cd -) 240 mg PO DAILY [facility] Last Admin: 11/27/18 09:35 Dose: 240 mg Metoprolol Succinate (Toprol Xl -) 150 mg PO DAILY [facility] Last Admin: 11/27/18 09:36 Dose: 150 mg Metoprolol Tartrate (Lopressor Injection -) 2.5 mg IVPB Q4H PRN PRN Reason: TACHYCARDIA Last Admin: 11/25/18 07:00 Dose: 2.5 mg - Objective Vital Signs: Vital Signs Temperature 97.2 F L 11/28/18 09:14 Pulse Rate 68 11/28/18 09:14 Respiratory Rate 18 11/28/18 09:14 Blood Pressure 130/73 11/28/18 09:14 O2 Sat by Pulse Oximetry (%) 97 11/28/18 08:45 Eyes: Yes: WNL, Conjunctiva Clear, EOM Intact HENT: Yes: WNL, Atraumatic, Normocephalic Neck: Yes: WNL, Supple, Trachea Midline Cardiovascular: Yes: Pulse Irregular Respiratory: Yes: WNL, Regular, CTA Bilaterally Gastrointestinal: Yes: WNL, Normal Bowel Sounds Genitourinary: Yes: WNL Musculoskeletal: Yes: WNL Extremities: Yes: WNL Edema: No Integumentary: Yes: WNL Neurological: Yes: WNL, Alert, Oriented ...Motor Strength: WNL Psychiatric: Yes: WNL Labs: CBC, BMP 11/26/18 05:54 11/28/18 05:26 INR, PTT INR 1.18 (0.83-1.09) H 11/23/18 08:55 Problem List - Problems (1) Acute hypotension Code(s): I95.9 - HYPOTENSION, UNSPECIFIED (2) Bladder cancer Code(s): C67.9 - MALIGNANT NEOPLASM OF BLADDER, UNSPECIFIED (3) Diverticulosis Code(s): K57.90 - DVRTCLOS OF INTEST, PART UNSP, W/O PERF OR ABSCESS W/O BLEED (4) Fatty liver Code(s): K76.0 - FATTY (CHANGE OF) LIVER, NOT ELSEWHERE CLASSIFIED (5) Hiatal hernia with GERD Code(s): K21.9 - GASTRO-ESOPHAGEAL REFLUX DISEASE WITHOUT ESOPHAGITIS; K44.9 - DIAPHRAGMATIC HERNIA WITHOUT OBSTRUCTION OR GANGRENE (6) History of acute alcoholic hepatitis Code(s): Z87.19 - PERSONAL HISTORY OF OTHER DISEASES OF THE DIGESTIVE SYSTEM (7) History of adenomatous polyp of colon Code(s): Z86.010 - PERSONAL HISTORY OF COLONIC POLYPS (8) Prostate cancer Code(s): C61 - MALIGNANT NEOPLASM OF PROSTATE (9) Recovering alcoholic in remission Code(s): F10.21 - ALCOHOL DEPENDENCE, IN REMISSION (10) Atrial fibrillation with RVR Code(s): I48.91 - UNSPECIFIED ATRIAL FIBRILLATION (11) Chest pain Code(s): R07.9 - CHEST PAIN, UNSPECIFIED Qualifiers: Chest pain type: other chest pain Qualified Code(s): R07.89 - Other chest pain; R07.8 - Other chest pain (12) [place] cardiac risk >20% in next 10 years Code(s): Z91.89 - OTH PERSONAL RISK FACTORS, NOT ELSEWHERE CLASSIFIED (13) HLD (hyperlipidemia) Code(s): E78.5 - HYPERLIPIDEMIA, UNSPECIFIED (14) HTN (hypertension) Code(s): I10 - ESSENTIAL (PRIMARY) HYPERTENSION (15) New onset a-fib Code(s): I48.91 - UNSPECIFIED ATRIAL FIBRILLATION (16) SOB (shortness of breath) on exertion Code(s): R06.02 - SHORTNESS OF BREATH Assessment/Plan 1. Paroxysmal atrial fibrillation [id number] score of 2 on no A/C therapy- therapy withhold post colonoscopy/polypectomy to be resumed 11/30/2018- [place] 2. 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 HTN 4. Hypercholesterolemia 5. Post colonoscopy/polypectomy PLAN: 1. Continue Toprol XL with caution considering above/probable sick sinus syndrome, tachy- jami syndrome 2. Continue Cardizem CD with caution considering above/probable sick sinus syndrome, tachy- jami syndrome 3. To resume A/C on 11/30/2018 as per GI service post colonoscopy/polypectomy 4. If the above noted bradycardia/pauses persist may need to consider pacemaker implant- further evaluation as outpatient
--- NOTE | 2018-11-28 11:48 | PN ---
Teaching Attending Note Name of Resident: Fredy Suarez ATTENDING PHYSICIAN STATEMENT I saw and evaluated the patient. I reviewed the resident's note and discussed the case with the resident. I agree with the resident's findings and plan as documented with exceptions below. SUBJECTIVE: Patient seen and examined, no complaints overnight. OBJECTIVE: Vital Signs Period Temp Pulse Resp BP Sys/Nieto Pulse Ox Last 24 Hr 97.2 F-98.5 F 68-81 18-18 115-138/53-75 97-97 Intake & Output 11/25/18 11/26/18 11/27/18 11/28/18 23:59 23:59 23:59 23:59 Intake Total 2330 1060 1130 Balance 2330 1060 1130 General: sitting in chair no acute distress neck: soft, Supple Chest: CTAB, no rales or wheezing CVS:S1S2 irregularly irregular Abdomen:Soft, NT Extremities: no edema Home Medications Medication Instructions Recorded Atorvastatin Ca [Lipitor] 20 mg PO HS #0 tablet 09/29/12 Apixaban [Eliquis -] 5 mg PO BID #60 tablet 11/05/17 Metoprolol Succinate [Toprol XL -] 25 mg PO BID #60 tab.sr.24h 11/05/17 Active Medications Atorvastatin Calcium (Lipitor -) 20 mg PO HS [facility] Last Admin: 11/27/18 21:06 Dose: 20 mg Diltiazem HCl (Cardizem Injection -) 10 mg IVPUSH Q4H PRN PRN Reason: TACHYCARDIA Diltiazem HCl (Cardizem Cd -) 240 mg PO DAILY [facility] Last Admin: 11/28/18 09:56 Dose: 240 mg Metoprolol Succinate (Toprol Xl -) 150 mg PO DAILY [facility] Last Admin: 11/28/18 09:56 Dose: 150 mg Metoprolol Tartrate (Lopressor Injection -) 2.5 mg IVPB Q4H PRN PRN Reason: TACHYCARDIA Last Admin: 11/25/18 07:00 Dose: 2.5 mg Laboratory Results - last 24 hr 11/28/18 05:26 Sodium 141 Potassium 4.3 Chloride 104 Carbon Dioxide 31 Anion Gap 5 L BUN 10.4 Creatinine 0.8 Est GFR (CKD-EPI)AfAm 104.17 Est GFR (CKD-EPI)NonAf 89.88 Random Glucose 96 Calcium 8.4 L Phosphorus 3.5 Magnesium 2.1 ASSESSMENT AND PLAN: 73 yom with PMHx of Afib on eliquis, HTN, HLD, GERD/PUD, Colonic adenoma, Prostate ca s/p radiation, Bladder Ca s/p TURBT/Surgery, admitted with rapid afib when planned for outpatient colonoscopy, procedure aborted. -Afib with RVR, ?In the setting of hypovolumia from bowel prep/NPO -Suspected sick sinus/tachy jami syndrome -H/o Colonic adenoma, for Colonoscopy -HTN -HLD -Severe tricuspid regurgitation -PUD/GERD/h/o H. Pylori gastritis -Prostate Ca s/p radiation -Bladder Ca s/p TURBT/Surgery Plan: HR improved, Cardiology input noted toprol/Cardizem Resume eliquis 11/[address] Chavez. Fl home with outpatient cardiology and PCP follow up Discussed with patient, all questions answered.
[2018-11-28 14:01] VITALS: BP 117/65; PULSE 67; TEMP 98.6
--- NOTE | 2018-11-28 14:09 | DS ---
Physical Exam: SUBJECTIVE: Patient seen and examined. Denies palpitations, chest pain, trouble breathing. OBJECTIVE: Vital Signs Period Temp Pulse Resp BP Sys/Nieto Pulse Ox Last 24 Hr 97.2 F-98.6 F 67-81 16-18 117-138/55-75 97-97 PHYSICAL EXAM GENERAL: Awake, alert, in no acute distress. HEAD: Normal with no signs of trauma. EYES: scleral anicteric, conjunctivae w/o pallor EARS, NOSE, THROAT: Moist mucous membranes. LUNGS: Breath sounds equal, clear to auscultation bilaterally. No wheezes, and no crackles. No accessory muscle use. HEART: nontachy, regular, no murmurs ABDOMEN: Soft, nontender, not distended, normoactive bowel sounds, no guarding, no rebound, no masses. LOWER EXTREMITIES: 2+ pulses, warm, well-perfused. No calf tenderness. No peripheral edema. SKIN: Warm, dry. LABS Laboratory Results - last 24 hr 11/28/18 05:26 Sodium 141 Potassium 4.3 Chloride 104 Carbon Dioxide 31 Anion Gap 5 L BUN 10.4 Creatinine 0.8 Est GFR (CKD-EPI)AfAm 104.17 Est GFR (CKD-EPI)NonAf 89.88 Random Glucose 96 Calcium 8.4 L Phosphorus 3.5 Magnesium 2.1 HOSPITAL COURSE: 73 y/o male with a history of HLD, bladder cancer, prostate cancer, afib ( on eliquis), GERD presented to [facility] for an outpatient screening colonoscopy. Pre- procedure the patient was found to be tachycardic so therefore the patient was sent to the ED for further evaluation. Patient was found to be in Afib w/ RVR. Cardiology was consulted who increased metoprolol and added cardizem. The patient underwent a colonoscopy with multiple cecal polyps biopsied. Anticoagulation was recommended to be held for 5 days post-colonoscopy. Multiple episodes of tachy-jami were noted on telemetry and cardiology recommended possible implanted pacemaker as outpatient. Patient deemed stable for discharge Date of Admission:11/23/18 Date of Discharge: 11/28/18 Minutes to complete discharge: 20 Discharge Summary Problems reviewed: Yes Reason For Visit: ATRIAL FIB W RAPID VENTRICULAR RESPONSE Current Active Problems Acute hypotension (Acute) Bladder cancer (Acute) Diverticulosis (Acute) Fatty liver (Acute) Hiatal hernia with GERD (Acute) History of acute alcoholic hepatitis (Acute) History of adenomatous polyp of colon (Acute) Prostate cancer (Acute) Recovering alcoholic in remission (Acute) Procedures: Principal: colonoscopy Condition: Stable - Instructions Diet, Activity, Other Instructions: You presented to the hospital with a rapid heart rate and were found to be in Atrial fibrillation. Your heart rate medication was adjusted and your heart rate has improved. Medication Changes: 1. Please do not take any Eliquis until Wednesday (11/30) 2. NEW medications: --Metoprolol Succinate[TOPROL XL] 150, to be taken once daily --Diltiazem HCl[CARDIZEM CD] 240mg, to be taken once daily 3. Continue you taking Atorvastatin Ca[LIPITOR] 20mg, and 4. Resume Apixaban[ELIQUIS] to be resumed on 11/30/18 Follow up with the following physicians: 1. PCP in one week, please call to schedule follow up to further manage your diabetes 2. [facility] Spl[facility](Dr Chavez) in one week. Please call to schedule follow up to further manage your Atrial Fibrillation, Tricuspid Regurgitation, and continued discussion for possible need for a pacemaker 3. Gastroenterology(Dr Morse) in one to two weeks, for follow of your colonoscopy results Please continue to monitor your diet as you need to intake less sugar and drink plenty of fluids. Continue all your other medications as prescribed Please return to the ER if you have any signs or symptoms of palpitations, chest pain, shortness of breath, uncontrollable fever, chills, nausea, vomiting , numbness, tingling, or weakness in any part of your body, changes in vision, or slurred speech. Please return to the ER if symptoms persist, worsen, or new symptoms arise. Referrals: Alexx Mccarthy MD [Primary Care Provider] - Tanvir Morse MD [Staff Physician] - Mike Chavez MD [Staff Physician] - Rajeev Heck MD [Staff Physician] - Disposition: HOME - Home Medications Comprehensive Discharge Medication List: Ambulatory Orders Atorvastatin Ca [Lipitor] 20 mg PO HS #0 tablet 09/29/12 Apixaban [Eliquis -] 5 mg PO BID #60 tablet 11/28/18 Diltiazem Cd [Cardizem Cd -] 240 mg PO DAILY 30 Days #30 cap.cd.24h 11/28/18 Metoprolol Succinate [Toprol Xl] 150 mg PO DAILY #90 tab.er.24h 11/28/18 Problem List - Problems (1) History of adenomatous polyp of colon Code(s): Z86.010 - PERSONAL HISTORY OF COLONIC POLYPS (2) Atrial fibrillation with RVR Code(s): I48.91 - UNSPECIFIED ATRIAL FIBRILLATION (3) HLD (hyperlipidemia) Code(s): E78.5 - HYPERLIPIDEMIA, UNSPECIFIED (4) HTN (hypertension) Code(s): I10 - ESSENTIAL (PRIMARY) HYPERTENSION This patient is new to me today: No Emergency Visit: No Critical Care patient: No - Discharge Referral Referred to [facility] Med P.C.: No ATTENDING PHYSICIAN STATEMENT I saw and evaluated the patient. I reviewed the resident's note and discussed the case with the resident. I agree with the resident's findings and plan as documented. SUBJECTIVE: OBJECTIVE: ASSESSMENT AND PLAN:
--- NOTE | 2018-11-28 17:54 | PATH ---
Surgical Pathology Report Patient Name: LJ RUSSELL [facility]. Rec. #: [id number] /Age/Gender: 1945 (Age: 73) / M Account: [id number] Location: 4 SO PEDS/ADOL Taken: 11/25/2018 Received: 11/25/2018 Reported: 11/28/2018 Physicians: Tanvir Morse M.D. Specimen(s) Received CECAL POLYP Clinical History History colon adenoma Postoperative diagnosis: Diverticulosis, AVM, polyps Final Diagnosis CECAL POLYPS, POLYPECTOMY: TUBULAR ADENOMA. HYPERPLASTIC POLYP(S). Electronically Signed Karen Barger M.D. Gross Description Received in formalin, labeled "cecal polyps" are 6 lama, irregular portions of soft tissue measuring 0.1-0.6 cm. in greatest dimension. The specimens are submitted in toto in one cassette. MLSZ/11/25/2018 [place]/11/25/2018
--- NOTE | 2018-11-28 18:59 | PN ---
Physical Exam: SUBJECTIVE: Patient seen and examined. Denies chest pain, palpitations OBJECTIVE: Vital Signs Period Temp Pulse Resp BP Sys/Nieto Pulse Ox Last 24 Hr 97.2 F-98.6 F 67-81 16-18 117-138/55-75 97-97 GENERAL: Awake, alert, in no acute distress. HEAD: Normal with no signs of trauma. EYES: scleral anicteric, conjunctivae w/o pallor EARS, NOSE, THROAT: Moist mucous membranes. LUNGS: Breath sounds equal, clear to auscultation bilaterally. No wheezes, and no crackles. No accessory muscle use. HEART: tachy, regular, no murmurs ABDOMEN: Soft, nontender, not distended, normoactive bowel sounds, no guarding, no rebound, no masses. LOWER EXTREMITIES: 2+ pulses, warm, well-perfused. No calf tenderness. No peripheral edema. SKIN: Warm, dry. Laboratory Results - last 24 hr 11/28/18 05:26 Sodium 141 Potassium 4.3 Chloride 104 Carbon Dioxide 31 Anion Gap 5 L BUN 10.4 Creatinine 0.8 Est GFR (CKD-EPI)AfAm 104.17 Est GFR (CKD-EPI)NonAf 89.88 Random Glucose 96 Calcium 8.4 L Phosphorus 3.5 Magnesium 2.1 Active Medications Generic Name Dose Route Start Last Admin Trade Name Freq PRN Reason Stop Dose Admin Atorvastatin Calcium 20 mg 11/23/18 22:00 11/27/18 21:06 Lipitor - PO 20 mg HS FIDENCIO Administration Diltiazem HCl 10 mg 11/26/18 12:00 Cardizem Injection - IVPUSH Q4H PRN TACHYCARDIA Diltiazem HCl 240 mg 11/27/18 10:00 11/28/18 09:56 Cardizem Cd - PO 240 mg DAILY FIDENCIO Administration Metoprolol Succinate 150 mg 11/26/18 10:00 11/28/18 09:56 Toprol Xl - PO 150 mg DAILY FIDENCIO Administration Metoprolol Tartrate 2.5 mg 11/23/18 11:44 11/25/18 07:00 Lopressor Injection - IVPB 2.5 mg Q4H PRN Administration TACHYCARDIA ASSESSMENT/PLAN: 73 y/o male with a history of HLD, bladder cancer, prostate cancer, afib ( on eliquis), and GERD who is admitted for afib with RVR #afib with RVR -- possibly 2/2 to recent hypovolemia with bowel prep > TSH: 0.91 -- normal > Echo 11/04/17 : normal LVEF, normal chamber size, moderate sever AR, moderate AR, EF normal > Echo 11/23/18: LV normal, no wall motion abnorm, severe TR, RVSP 50-50mmHg > 11/03/17 stress test: no wall abnormalities, PVC during excercise, Ef: 56% > troponin 0.02 --> 0.03 - s/p 5 mg IV lopressor in ED - followed by Cardio --Metoprolol succinate 150mg QD --Diltiazem 240mg daily --lopressor 2.5 q4h for tacycardia #colonosocopy > multiple cecal polypectomies - rec HOLD AC for 5d post-cscope #bladder ca and prostate ca - both being watched with labs and Dr. Avalos #HLD - continue statin #DVT ppx - to be held until 11/30/18 FEN - sodium-controlled diet Problem List - Problems (1) History of adenomatous polyp of colon Code(s): Z86.010 - PERSONAL HISTORY OF COLONIC POLYPS (2) Atrial fibrillation with RVR Code(s): I48.91 - UNSPECIFIED ATRIAL FIBRILLATION (3) HLD (hyperlipidemia) Code(s): E78.5 - HYPERLIPIDEMIA, UNSPECIFIED (4) HTN (hypertension) Code(s): I10 - ESSENTIAL (PRIMARY) HYPERTENSION Visit type - Emergency Visit Emergency Visit: No - New Patient This patient is new to me today: No - Critical Care Critical Care patient: No ATTENDING PHYSICIAN STATEMENT I saw and evaluated the patient. I reviewed the resident's note and discussed the case with the resident. I agree with the resident's findings and plan as documented. SUBJECTIVE: OBJECTIVE: ASSESSMENT AND PLAN:
== END 2018-11-28 19:13 | disposition home or self-care (01) | DRG 310 ==
LOC: JER 08:04 → JERBED 10:44 → J4S 17:07
PROVIDERS: ADMIT Internal Medicine; ATTEND Hospitalist
PROC: 0DBH8ZX Excision of Cecum, Via Natural or Artificial Opening Endoscopic, Diagnostic (ICD-10-PCS; principal; 2018-11-25 10:45)
DX: I48.91 Unspecified atrial fibrillation (principal); E78.5 Hyperlipidemia, unspecified; K21.9 Gastro-esophageal reflux disease without esophagitis; K57.90 Diverticulosis of intestine, part unspecified, without perforation or abscess without bleeding; K29.70 Gastritis, unspecified, without bleeding; K76.0 Fatty (change of) liver, not elsewhere classified; I10 Essential (primary) hypertension; N40.0 Benign prostatic hyperplasia without lower urinary tract symptoms; F10.21 Alcohol dependence, in remission; I07.1 Rheumatic tricuspid insufficiency; E86.1 Hypovolemia; D12.6 Benign neoplasm of colon, unspecified; I95.9 Hypotension, unspecified; I49.5 Sick sinus syndrome; Z85.51 Personal history of malignant neoplasm of bladder; Z85.46 Personal history of malignant neoplasm of prostate; Z87.11 Personal history of peptic ulcer disease
CPT/HCPCS: 36415; 71045-TC-FY; 80048; 80053; 82550; 83735; 84100; 84443; 84484; 85025; 85027; 85610; 88305-TC; 93005; 93010; 93306-TC; 97116-GP; 97161-GP; 99285-25; J7030

== ENCOUNTER 2019-01-06 08:12 | Day surgery (SDC) | payer OTHER ==
[2019-01-05 14:59] VITALS: BMI 30.4
[2019-01-06 08:52] VITALS: TEMP 97.8
[2019-01-06] MEDS ORDERED: MIDAZOLAM HCL 2 MG/2 ML SINGLE DOSE VIAL ONE (10:08)
[2019-01-06] MEDS ORDERED: GLYCOPYRROLATE 0.2 MG/1 ML VIAL ONE (10:09)
[2019-01-06 13:09] VITALS: BP 118/62; PULSE 53
--- NOTE | 2019-01-09 17:00 | PATH ---
Surgical Pathology Report Patient Name: LJ RUSSELL [facility]. Rec. #: [id number] /Age/Gender: 1945 (Age: 73) / M Account: [id number] Location: U-ENDOSCOPY Taken: 01/06/2019 Received: 01/06/2019 Reported: 01/09/2019 Physicians: Tanvir Morse M.D. Specimen(s) Received A: ANTRUM B: GE JUNCTION C: MID ESOPHAGUS Clinical History Heartburn, dysphagia Postoperative diagnosis: GERD Final Diagnosis A. STOMACH, ANTRUM, BIOPSY: GASTRIC ANTRAL MUCOSA WITH MILD CHRONIC GASTRITIS AND FOCAL INTESTINAL METAPLASIA. NO DYSPLASIA IDENTIFIED. IMMUNOHISTOCHEMICAL STAIN FOR H. PYLORI IS NEGATIVE. B. GE JUNCTION, BIOPSY: SQUAMOCOLUMNAR MUCOSA WITH MINIMAL CHRONIC INFLAMMATION AND CHANGES OF MILD REFLUX ESOPHAGITIS. NO INTESTINAL METAPLASIA OR DYSPLASIA IDENTIFIED. C. MID ESOPHAGUS, BIOPSY: SQUAMOUS MUCOSA WITH CHANGES OF MILD REFLUX TYPE ESOPHAGITIS. Electronically Signed Karen Barger M.D. Gross Description A. Received in formalin, labeled "biopsy antrum" are 3 lama, irregular portions of soft tissue ranging from 0.3-0.5 cm. in greatest dimension. The specimens are submitted in toto in one cassette. B. Received in formalin, labeled "biopsy GE junction" are 2 lama, irregular portions of soft tissue averaging 0.3 cm. in greatest dimension. The specimens are submitted in toto in one cassette. C. Received in formalin, labeled "biopsy mid esophagus" are 2 lama, irregular portions of soft tissue measuring 0.3 and 0.4 cm. in greatest dimension. The specimens are submitted in toto in one cassette. 01/06/201901/06/2019
== END 2019-01-06 12:50 | disposition home or self-care (01) ==
LOC: JASU-ENDO 08:12
PROVIDERS: ATTEND Internal Medicine Gastroenterology
PROC: 0DB28ZX Excision of Middle Esophagus, Via Natural or Artificial Opening Endoscopic, Diagnostic (ICD-10-PCS; 2019-01-06)
PROC: 0DB38ZX Excision of Lower Esophagus, Via Natural or Artificial Opening Endoscopic, Diagnostic (ICD-10-PCS; principal; 2019-01-06 10:30)
DX: K21.9 Gastro-esophageal reflux disease without esophagitis (principal); K44.9 Diaphragmatic hernia without obstruction or gangrene; Z85.46 Personal history of malignant neoplasm of prostate; Z85.51 Personal history of malignant neoplasm of bladder
CPT/HCPCS: 88305-TC; 88342-TC

== ENCOUNTER 2023-03-03 04:16 | Day surgery (SDC) | payer OTHER ==
[2023-03-02 12:55] VITALS: BMI 29.5
[2023-03-03 11:35] VITALS: TEMP 97.7
[2023-03-03 12:58] VITALS: BP 127/72; PULSE 95; RESP 18
== END 2023-03-03 12:45 | disposition home or self-care (01) ==
LOC: JASU-ENDO 04:16
PROVIDERS: ATTEND Internal Medicine Gastroenterology
PROC: 0DB38ZX Excision of Lower Esophagus, Via Natural or Artificial Opening Endoscopic, Diagnostic (ICD-10-PCS; 2023-03-03)
PROC: 0DB78ZX Excision of Stomach, Pylorus, Via Natural or Artificial Opening Endoscopic, Diagnostic (ICD-10-PCS; 2023-03-03)
PROC: 0DB68ZX Excision of Stomach, Via Natural or Artificial Opening Endoscopic, Diagnostic (ICD-10-PCS; 2023-03-03)
PROC: 0DB28ZX Excision of Middle Esophagus, Via Natural or Artificial Opening Endoscopic, Diagnostic (ICD-10-PCS; 2023-03-03)
PROC: 0DJD8ZZ Inspection of Lower Intestinal Tract, Via Natural or Artificial Opening Endoscopic (ICD-10-PCS; principal; 2023-03-03 11:00)
DX: Z12.11 Encounter for screening for malignant neoplasm of colon (principal); K57.30 Diverticulosis of large intestine without perforation or abscess without bleeding; K64.8 Other hemorrhoids; K64.4 Residual hemorrhoidal skin tags; K21.00 Gastro-esophageal reflux disease with esophagitis, without bleeding; K29.50 Unspecified chronic gastritis without bleeding; Z86.010 Personal history of colon polyps; I10 Essential (primary) hypertension
CPT/HCPCS: 43239; G0105